=== PATIENT | female | born 2000 | race Caucasian/White ===

== ENCOUNTER 2023-11-18 20:40 | Outpatient (REF) | payer OTHER, SELFPAY ==
[2023-11-24 12:09] LABS: Age Gdln ACOG Testing Note (.); IGP, rfx Aptima HPV ASCU Note (.)
== END 2023-11-18 20:41 | disposition home or self-care (01) ==
LOC: LAB 20:40
PROVIDERS: Visit Provider Physician Assistant
DX: Z01.419 Encounter for gynecological examination (general) (routine) without abnormal findings (principal)
CPT/HCPCS: G0145

== ENCOUNTER 2023-11-22 10:44 | Outpatient (OUT) | payer OTHER, SELFPAY ==
--- NOTE | 2023-11-22 11:02 | US_ITS ---
The [address] [address] Patient Name: ROBIN TEJEDA MRN: [id number] date: 2000 Sex: F Assigned Patient Location: Current Patient Location: Accession/Order Number: [id number] Exam Date: 11/22/2023 11:03 Report Date: 11/24/2023 05:36 At the request of: RAJNI CARLSON Procedure: US pelvis w/ transvaginal EXAMINATION: US pelvis w/ transvaginal HISTORY: MENORRHAGIA, PELVIC PAIN ; chronic COMPARISON: No relevant comparison available. TECHNIQUE: Transabdominal and/or transvaginal sonographic examination was performed as indicated by examination type. FINDINGS: UTERUS: Normal size and appearance. Uterus size: 10.3 x 4.2 x 5.9 cm ENDOMETRIUM: Normal homogeneous appearance. Endometrial thickness: 6 mm RIGHT OVARY: Normal size and appearance. Duplex Doppler demonstrates normal waveform and flow; resistive index 0.6. Ovary size: 3.8 x 2.2 x 2.0 cm LEFT OVARY: Contains a 1.7 cm dominant follicle versus simple cyst. Duplex Doppler demonstrates normal waveform and flow; resistive index 0.6. Ovary size: 3.8 x 2.8 x 3.0 cm CUL-DE-SAC: Unremarkable. No significant free fluid. BLADDER: Unremarkable. OTHER: None. US/US pelvis w/ transvaginal IMPRESSION: 1. No abnormal or suspicious findings to account for patient's symptoms. Electronically authenticated by: PAULA MIGUEL Date: 11/24/2023 05:36
[2023-11-22 11:05] LABS: Basophils Absolute Auto 0.1 10^3/uL (0.0-0.1); Basophils Percent Auto 1.1 % (0.2-2.0); Eosinophils Absolute Auto 0.1 10^3/uL (0.0-0.7); Eosinophils Percent Auto 1.3 % (0.9-7.0); Hematocrit 37.9 % (36.0-48.0); Lymphocytes Absolute Auto 1.6 10^3/uL (1.2-3.8); Lymphocytes Percent Auto 34.1 % (20.5-60.0); Mean Corpuscular HGB Conc 31.7 g/dL (29.9-35.2); Mean Corpuscular Hemoglobin 28.4 pg (26.7-34.0); Mean Corpuscular Volume 89.6 fL (81.0-99.0); Mean Platelet Volume 10.8 fL (9.5-13.5); Monocytes Absolute Auto 0.4 10^3/uL (0.3-0.8); Monocytes Percent Auto 9.7 % (1.7-12.0); Neutrophils Absolute Auto 2.5 10^3/uL (1.4-6.5); Neutrophils Percent Auto 53.8 % (43.0-75.0); Platelet Count 218 10^3/uL (150-450); Red Blood Count 4.23 10^6/uL (4.20-5.40); Red Cell Distribution Width 12.2 % (11.0-15.0); White Blood Count 4.6 10^3/uL (4.0-11.0)
[2023-11-22 11:23] LABS: Estimated Average Glucose 94 mg/dL; Glycohemoglobin A1C 4.9 % (4.5-6.2)
[2023-11-22 11:44] LABS: INR 1.01; Partial Thromboplastin Time 33.4 sec (22.3-36.2); Prothrombin Time 10.7 sec (9.0-11.6)
[2023-11-22 11:46] LABS: Free T4 0.79 ng/dL (0.76-1.46)
[2023-11-22 12:14] LABS: HCG Quantitative <1 mIU/mL; Thyroid Stimulating Hormone 1.522 uIU/mL (0.358-3.740)
== END 2023-11-22 10:45 | disposition home or self-care (01) ==
LOC: US 10:44
PROVIDERS: Visit Provider Obstetrics & Gynecology
DX: N92.0 Excessive and frequent menstruation with regular cycle (principal)
CPT/HCPCS: 36415; 76830; 76856; 83036; 84439; 84443; 84702; 85025; 85610; 85730

== ENCOUNTER 2025-02-15 12:09 | Outpatient (OUT) | payer OTHER, SELFPAY ==
[2025-02-15 12:57] LABS: Hematocrit 38.1 % (36.0-48.0); Hemoglobin 12.4 g/dL (12.0-16.0); Immature Granulocytes Abs Auto 0.01 10^3/uL (0.00-0.03); Immature Granulocytes Pct Auto 0.2 % (0.0-0.5); Lymphocytes Absolute Auto 1.3 10^3/uL (1.2-3.8); Mean Corpuscular HGB Conc 32.5 g/dL (29.9-35.2); Mean Corpuscular Hemoglobin 28.5 pg (26.7-34.0); Mean Corpuscular Volume 87.6 fL (81.0-99.0); Platelet Count 252 10^3/uL (150-450); Red Blood Count 4.35 10^6/uL (4.20-5.40); White Blood Count 4.8 10^3/uL (4.0-11.0)
[2025-02-15 13:36] LABS: Thyroid Stimulating Hormone 0.818 uIU/mL (0.358-3.740)
[2025-02-16 04:07] LABS: FSH 3.2 mIU/mL (.)
== END 2025-02-15 12:10 | disposition home or self-care (01) ==
PROVIDERS: Visit Provider Physician Assistant
DX: E28.2 Polycystic ovarian syndrome (principal); Z01.419 Encounter for gynecological examination (general) (routine) without abnormal findings
CPT/HCPCS: 36415; 82627; 83001; 83002; 83036; 84439; 84443; 84702; 85025; 88175

== ENCOUNTER 2025-02-15 19:10 | Outpatient (REF) | payer OTHER, SELFPAY ==
[2025-02-21 16:08] LABS: Age Gdln ACOG Testing Note (.); IGP, rfx Aptima HPV ASCU Note (.)
== END 2025-02-15 19:11 | disposition home or self-care (01) ==
LOC: LAB 19:10
PROVIDERS: Visit Provider Physician Assistant
DX: Z01.419 Encounter for gynecological examination (general) (routine) without abnormal findings (principal)
CPT/HCPCS: 88175

== ENCOUNTER 2025-03-28 20:28 | Outpatient (REF) | payer OTHER, SELFPAY | END 2025-03-28 20:29 | disposition home or self-care (01) | LOC: LAB 20:28 | PROVIDERS: Visit Provider Obstetrics & Gynecology | DX: N64.3 Galactorrhea not associated with childbirth (principal) | CPT/HCPCS: 87070; 87075 ==

== ENCOUNTER 2025-04-13 08:41 | Outpatient (OUT) | payer OTHER, SELFPAY ==
--- OUTSIDE RECORDS SUMMARY | 2025-04-13 08:44 | XMS_ITS | Encounter Summary ---
Author Organization [facility] Address [address] [place] [address] Care Team Providers Care National Van Owner Operator Name Role Phone Benjamin Watts MD Primary Care Provider [phone] Encounter Details Date Type Department Care Team (Late st Contact Info) Description 11/24/2023 Clinisync Result Encounter [facility] External Department Unsolicited Rajni Manjarrez DO [address] [place], [place] [id number] Social History Tobacco Use Types Packs/Day Years Used Date Smoking Tobacco: Never Alcohol Use Standard Drinks/Week Comments Never 0 (1 standard drink = 0.6 oz pur e alcohol) Comments Unknown Sex and Gender Information Value Date Recorded Sex Assigned at Female 01/29/2023 8:37 AM EDT Legal Sex Female 11:47 PM EDT Gender Identity Female 01/29/2023 8:37 AM EDT Sexual Orientation Not on file documented as of this encounter Plan of Treatment Upcoming Encounters Date Type Department Care Team (Late st Contact Info) Description 04/28/2025 9:50 AM EDT Consult [facility] [address] [place] [id number] Rajni Manjarrez DO [address] [place], [place] [id number] documented as of this encounter Procedures Procedure Name Priority Date/Time Associated Diagnosis Comments US PELVIS W/ TRANSVAGINAL 11/24/2023 5:36 AM EDT documented in this encounter Results * US PELVIS W/ TRANSVAGINAL (11/24/2023 5:36 AM EDT) Anatomical Region Laterality Modality Other 11/24/2023 5:36 AM EDT Narrative 11/24/2023 5:39 [place] [address] Ultrasound Report Signed Patient: EDEL TEJEDA MR#: [id number] : 2000 Acct:[id number] Age/Sex: 23 / F ADM Date: 11/22/23 Loc: US Attending Dr: Rajni Manjarrez D.O. Ordering Physician: Rajni Manjarrez D.O. Date of Service: 11/22/23 Procedure(s): US pelvis w/ transvaginal Accession Number(s): [id number] cc: Rajni Manjarrez D.O.; Physician,Non-Staff [address] [place] [id number] Patient Name: EDEL TEJEDA MRN: [id number] date: 2000 Sex: F Assigned Patient Location: US Current Patient Location: Accession/Order Number: [id number] Exam Date: 11/22/2023 11:03 Report Date: 11/24/2023 05:36 At the request of: RAJNI MANJARREZ Procedure: US pelvis w/ transvaginal EXAMINATION: US pelvis w/ transvaginal HISTORY: MENORRHAGIA, PELVIC PAIN ; chronic COMPARISON: No relevant comparison available. TECHNIQUE: Transabdominal and/or transvaginal sonographic examination was performed as indicated by examination type. FINDINGS: UTERUS: Normal size and appearance. Uterus size: 10.3 x 4.2 x 5.9 cm ENDOMETRIUM: Normal homogeneous appearance. Endometrial thickness: 6 mm RIGHT OVARY: Normal size and appearance. Duplex Doppler demonstrates normal waveform and flow; resistive index 0.6. Ovary size: 3.8 x 2.2 x 2.0 cm LEFT OVARY: Contains a 1.7 cm dominant follicle versus simple cyst. Duplex Doppler demonstrates normal waveform and flow; resistive index 0.6. Ovary size: 3.8 x 2.8 x 3.0 cm CUL-DE-SAC: Unremarkable. No significant free fluid. BLADDER: Unremarkable. OTHER: None. US/US pelvis w/ transvaginal IMPRESSION: 1. No abnormal or suspicious findings to account for patient's symptoms. Electronically authenticated by: EDWAR HSIEH Date: 11/24/2023 05:36 Dictated By: Edwar Hsieh M.D. Signed By: 11/24/23 0539 DD/ TD/TT: Maintenance Worker House Trailer: Procedure Note Radiology, Radiologist, MD - 11/24/2023 [place] [address] Ultrasound Report Signed Patient: EDEL TEJEDA MMR#: [id number] : 2000Acct:[id number] Age/Sex: 23 / FADM Date: 11/22/23 Loc: US Attending Dr: Rajni Manjarrez D.O. Ordering Physician: Rajni Manjarrez D.O. Date of Service: 11/22/23 Procedure(s): US pelvis w/ transvaginal Accession Number(s): [id number] cc: Rajni Manjarrez D.O.; Physician,Non-Staff [facility] [address] [place] [id number] Patient Name: EDEL TEJEDA MRN: [id number] date: 2000 Sex: F Assigned Patient Location: US Current Patient Location: Accession/Order Number: [id number] Exam Date: 11/22/2023 11:03 Report Date: 11/24/2023 05:36 At the request of: RAJNI MANJARREZ Procedure: US pelvis w/ transvaginal EXAMINATION: US pelvis w/ transvaginal HISTORY: MENORRHAGIA, PELVIC PAIN ; chronic COMPARISON: No relevant comparison available. TECHNIQUE: Transabdominal and/or transvaginal sonographic examination was performed as indicated by examination type. FINDINGS: UTERUS: Normal size and appearance. Uterus size: 10.3 x 4.2 x 5.9 cm ENDOMETRIUM: Normal homogeneous appearance. Endometrial thickness: 6 mm RIGHT OVARY: Normal size and appearance. Duplex Doppler demonstratesnormal waveform and flow; resistive index 0.6. Ovary size: 3.8 x 2.2 x 2.0 cm LEFT OVARY: Contains a 1.7 cm dominant follicle versus simple cyst. Duplex Doppler demonstrates normal waveform and flow; resistive index 0.6. Ovary size: 3.8 x 2.8 x 3.0 cm CUL-DE-SAC: Unremarkable. No significant free fluid. BLADDER: Unremarkable. OTHER: None. US/US pelvis w/ transvaginal IMPRESSION: 1. No abnormal or suspicious findings to account for patient's symptoms. Electronically authenticated by: EDWAR HSIEH Date: 11/24/2023 05:36 Dictated By: Edwar Hsieh M.D. Signed By:11/24/23 0539 DD/ 0536 TD/TT: Maintenance Worker House Trailer: us Rajni Josseline DO [facility] Final Result documented in this encounter Visit Diagnoses Not on filedocumented in this encounter Care Teams National Van Owner Operator Relationship Specialty Start Date End Date Benjamin Watts MD [address] [place] [id number] PCP - General Family Medicine 02/05/23 documented as of this encounter
--- OUTSIDE RECORDS SUMMARY | 2025-04-13 08:44 | XMS_ITS | Encounter Summary ---
Author Organization [facility] tem Address [id number] [address] [place] [address] Care Team Providers Care Commercial Ocean Clammer Name Role Phone Marko Freeman MD Primary Care Provider [phone] Encounter Details Date Type Department Care Team (Late st Contact Info) Description 02/23/2021 Orders Only Maternal- Medicine at [facility] [address] [place] [id number] External, Scanning Provider Social History Tobacco Use Types Packs/Day Years Used Date Smoking Tobacco: Never Smokeless Tobacco: Never Alcohol Use Standard Drinks/Week Comments Not Currently 0 (1 standard drink = 0.6 oz pur e alcohol) Childcare Answer Date Recorded Childcare Unknown 01/25/2019 Employment Answer Date Recorded Employment Unknown 01/25/2019 Purpose - Life Answer Date Recorded Purpose and direction in life Unknown Comments Yes Sex and Gender Information Value Date Recorded Sex Assigned at Not on file Legal Sex Female 2:10 PM EDT Gender Identity Not on file Sexual Orientation Not on file documented as of this encounter Plan of Treatment Not on file documented as of this encounter Procedures Procedure Name Priority Date/Time Associated Diagnosis Comments US PREG LMTD 1 OR MORE FETUS Routine 11/28/2020 documented in this encounter Results * Ultrasound limited 1 or more fetus (11/28/2020) Anatomical Region Laterality Modality 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
--- OUTSIDE RECORDS SUMMARY | 2025-04-13 08:44 | XMS_ITS | Clinical Summary ---
Author Organization [facility] Address [address] [place] [address] Care Team Providers Care Animal Technician Name Role Phone Benjamin Watts MD Primary Care Provider [phone] Allergies Active Allergy Reactions Criticality Noted Date Comments Amoxicillin-Pot Clavulanate Nausea And Vomiting Low 01/08/2025 Stomach pain and migraines Azithromycin Hives,Rash,Unknown Low 05/29/2017 Stomach pain Other Reaction(s): Other (See Comments), Vomiting Medications methylPREDNISol one (Medrol Dospak) 4 MG tablets PLEASE SEE ATTACHED FOR DETAILED DIRECTIONS 5 Active fluocinonide (Lidex) 0.05 % cream PLEASE SEE ATTACHED FOR DETAILED DIRECTIONS 5 Active cyclobenzaprine (Flexeril) 10 MG tablet TAKE 1 TABLET BY MOUTH THREE TIMES A DAY NEEDED FOR MUSCLE SPASM 5 Active citalopram (CeleXA) 20 MG tabletIndicatio ns:Anxiety and depression Take 1 tablet (20 mg) by mouth Daily 30 tablet 11 5 02/16/20 26 Active cephalexin (Keflex) 500 MG capsuleIndicati ons:Nipple discharge Take 1 capsule (500 mg) by mouth in the morning and 1 capsule (500 mg) in the evening and 1 capsule (500 mg) before bedtime. Do all this for 7 days. 21 capsule 5 04/19/20 25 Active ondansetron (Zofran) 4 MG tabletIndicatio ns:Nausea Take 1 tablet (4 mg) by mouth 2 (two) times a day as needed for nausea 20 tablet 07/03/17/20 25 Encounters Date Type Department Care Team Description 04/12/2025 Abstract [facility] [address] [place] [phone] Vince Manjarrez, 04/12/2025 Telephone [facility] [address] [place] [phone] Vince Manjarrez, 03/28/2025 3:50 PM EDT Office Visit [facility] [address] [place] [address] Vince Manjarrez, DO Inappropriate milk production (Primary Dx); PCOS (polycystic ovarian syndrome); Anxiety and depression ; Nausea; Hemophilia (HCC) 03/28/2025 Bamboo flowsheet [facility] [address] [place] [address] Vince Manjarrez, 03/01/2025 11:00 AM EDT Ancillary Procedure [facility] [address] [place] [address] PCOS (polycystic ovarian syndrome); Pain of ovary; Pelvic pain in female; Dyspareunia in female; Menorrhagia with regular cycle 02/23/2025 Orders Only [facility] [address] [place] [address] Ambar Alonso LPN 02/15/2025 11:00 AM EDT Office Visit [facility] [address] [place] [phone] Catalina Rainey PA PCOS (polycystic ovarian syndrome) (Primary Dx); Well woman exam with routine gynecological exam; Pain of ovary; Pelvic pain in female; Dyspareunia in female; Menorrhagia with regular cycle; Anxiety and depression ; Nausea 02/15/2025 Clinisync Result Encounter [facility] External Department Unsolicited Catalina Rainey PA 02/15/2025 Bamboo flowsheet [facility] [address] [place] [phone] Catalina Rainey PA from Last 3 Months Family History Medical History Relation Name Comments Hemophilia Other B Hemophilia Son 1 Hemophilia Son 2 Relation Name Status Comments Brother Alive Father Alive Mother Alive Other Grandmother Sister 1 Alive Sister 2 Alive Son 1 Alive 2 sons Son 2 Alive Social History Tobacco Use Types Packs/Day Years Used Date Smoking Tobacco: Never Tobacco Cessation:Counseling Given: Not Answered Alcohol Use Standard Drinks/Week Comments Never 0 (1 standard drink = 0.6 oz pur e alcohol) Comments No Sex and Gender Information Value Date Recorded Sex Assigned at Female 01/29/2023 8:37 AM EDT Legal Sex Female 11:47 PM EDT Gender Identity Female 01/29/2023 8:37 AM EDT Sexual Orientation Not on file Last Filed Vital Signs Vital Sign Reading Time Taken Comments Blood Pressure 114/72 03/28/2025 3:53 PM EDT Pulse - - Temperature - - Respiratory Rate - - Oxygen Saturation - - Inhaled Oxygen Concentration - - Weight 69.9 kg (154 lb) 03/28/2025 3:53 PM EDT Height 165.1 cm (5' 5 ) 03/28/2025 3:53 PM EDT Body Mass Index 25.63 03/28/2025 3:53 PM EDT Plan of Treatment Upcoming Encounters Date Type Department Care Team (Late st Contact Info) Description 04/28/2025 9:50 AM EDT Consult [facility] [address] [place] [phone] Vince Manjarrez DO [address] [place] [address] Procedures Procedure Name Priority Date/Time Associated Diagnosis Comments DHEA, UNCONJUGATED Routine 03/29/2025 8: 46 AM EDT PCOS (polycystic ovarian syndrome) DHEA SULFATE Routine 03/29/2025 8:46 AM EDT PCOS (polycystic ovarian syndrome) HEMOGLOBIN A1C Routine 03/29/2025 8:46 AM EDT PCOS (polycystic ovarian syndrome) LH Routine 03/29/2025 8:46 AM EDT PCOS (polycystic ovarian syndrome) FSH Routine 03/29/2025 8:46 AM EDT PCOS (polycystic ovarian syndrome) CBC (INCLUDES DIFF/PLT) Routine 03/29/2025 8:46 AM EDT PCOS (polycystic ovarian syndrome) T4, FREE Routine 03/29/2025 8:46 AM EDT PCOS (polycystic ovarian syndrome) TSH Routine 03/29/2025 8:46 AM EDT PCOS (polycystic ovarian syndrome) HCG, TOTAL, QN Routine 03/29/2025 8:46 AM EDT PCOS (polycystic ovarian syndrome) US PELVIS TRANSVAGINAL Routine 03/01/2025 12:01 PM EDT PCOS (polycystic ovarian syndrome) Pain of ovary Pelvic pain in female Dyspareunia in female Menorrhagia with regular cycle ALL FOLLICLE STIMULATING HORMONE Routine 02/15/2025 12:34 PM EDT ALL LUTEINIZING HORMONE Routine 02/15/2025 12:34 PM EDT ALL DHEA SULFATE Routine 02/15/2025 12:3 4 PM EDT MLR HEMOGLOBIN A1C Routine 02/15/2025 12 :34 PM EDT ALL THYROXINE (T4) FREE Routine 02/15/2025 12:34 PM EDT TBH PREG QUANT HCG Routine 02/15/2025 12 :34 PM EDT ALL THYROID STIM HORMONE Routine 02/15/2025 12:34 PM EDT ALL CBC WITH AUTO DIFF Routine 02/15/2025 12:34 PM EDT IGP,APTIMA HPV,AGE GDLN Routine 02/15/2025 11:12 AM EDT PAP SMEAR Routine 02/15/2025 12:00 AM EDT from Last 3 Months Results * DHEA-sulfate (03/29/2025 8:46 AM EDT) Blood Venous blood specimen / Unknown Catalina Rainey PA LAB BLOOD ORDERABLES Final Resul t Performing Organization Address [facility] de Phone Number [facility] * DHEA (03/29/2025 8:46 AM EDT) Blood Venous blood specimen / Unknown Catalina Rainey PA LAB BLOOD ORDERABLES Final Resul t Performing Organization Address [facility] Phone Number [facility] * CBC and differential (03/29/2025 8:46 AM EDT) Blood Venous blood specimen / Unknown Catalina Rainey PA LAB BLOOD ORDERABLES Final Resul t Performing Organization Address [facility] de Phone Number [facility] * hCG, quantitative, (03/29/2025 8:46 AM EDT) Blood Venous blood specimen / Unknown Catalina Rainey PA LAB BLOOD ORDERABLES Final Resul t Performing Organization Address [facility] Phone Number [facility] * TSH (03/29/2025 8:46 AM EDT) Blood Venous blood specimen / Unknown Catalina Rainey PA LAB BLOOD ORDERABLES Final Resul t Performing Organization Address [facility] de Phone Number [facility] * T4, free (03/29/2025 8:46 AM EDT) Blood Venous blood specimen / Unknown Catalina Rainey PA LAB BLOOD ORDERABLES Final Resul t Performing Organization Address [facility] de Phone Number [facility] * Hemoglobin A1c (03/29/2025 8:46 AM EDT) Blood Venous blood specimen / Unknown us Catalina NIETO LAB BLOOD ORDERABLES Final Resul t Performing Organization Address [facility] Co de Phone Number [facility] * Luteinizing hormone (03/29/2025 8:46 AM EDT) Blood Venous blood specimen / Unknown us Catalina Rainey PA LAB BLOOD ORDERABLES Final Resul t Performing Organization Address [facility] de Phone Number [facility] * Follicle stimulating hormone (03/29/2025 8:46 AM EDT) Blood Venous blood specimen / Unknown Catalina NIETO LAB BLOOD ORDERABLES Final Resul t Performing Organization Address [facility] de Phone Number [facility] * US pelvis transvaginal (03/01/2025 12:01 PM EDT) Anatomical Region Laterality Modality Pelvis Ultrasound 03/02/2025 6:50 PM EDT Impressions 03/03/2025 8:21 AM EDT 1. Ovarian follicles, right ovarian cyst. 2. Normal uterus. TRANSCRIBED BY: ELECTRONICALLY SIGNED BY: Hudson Dean MD Narrative 03/03/2025 8:21 AM EDT FINDINGS: Uterus 10.1 x 4.4 x 6.1 cm Endometrium 9mm Right Ovary 4.0 x 2.1 x 2.9cm Left Ovary 2.9 x 2.2. x 3.5 cm The uterus is normal in size and orientation. No worrisome mass lesions are seen. Endometrium appears unremarkable. No fluid is seen within the cul-de-sac. Bilateral ovarian follicles majority 3-5 mm, largest is located within the right ovary 2.2 x 1.6 x 2.1 cm. Procedure Note Hudson Dean MD - 03/03/2025 FINDINGS: Uterus 10.1 x 4.4 x 6.1 cm Endometrium 9mm Right Ovary 4.0 x 2.1 x 2.9cm Left Ovary 2.9 x 2.2. x 3.5 cm The uterus is normal in size and orientation. No worrisome mass lesionsare seen. Endometrium appears unremarkable. No fluid is seen within [id number]. Bilateral ovarian follicles majority 3-5 mm, largest islocated within the right ovary 2.2 x 1.6 x 2.1 cm. IMPRESSION: 1. Ovarian follicles, right ovarian cyst. 2. Normal uterus. TRANSCRIBED BY: ELECTRONICALLY SIGNED BY: Hudson Dean MD Catalina NIETO IMG US PROCEDURES Final Result * TBH PREG QUANT HCG (02/15/2025 12:34 PM EDT) HCG QUANTITATIVE <1 mIU/mL TB Comment: 5-50 0.2-1 WEEK 50-500 1-2 WEEKS 100-5,000 2-3 WEEKS 500-10,000 3-4 WEEKS 1,000-50,000 4-5 WEEKS 10,000-100,000 5-6 WEEKS 15,000-200,000 6-8 WEEKS 10,000-100,000 2-3 MONTHS 02/15/2025 12:3 4 PM EDT 02/15/2025 12:45 PM EDT Narrative CLINISYNC - 02/15/2025 1:42 PM EDT Catalina KELLOGG Final Result Performing Organization Address [facility] Co de Phone Number CLINISYAZ TB * MLR HEMOGLOBIN A1C (02/15/2025 12:34 PM EDT) Pathologist [facility] GLYCOHEMOGLOBIN A1C 5.2 4.5 - 6.2 % TB Comment: ADA RECOMMENDED LIMIT 4.0 - 6.0 ADA THERAPEUTIC TARGET < 7.0 ACTION SUGGESTED > 7.0 ESTIMATED AVERAGE GLUCOSE 103 mg/dL TB 02/15/2025 12:3 4 PM EDT 02/15/2025 12:45 PM EDT Narrative CLINISYNC - 02/15/2025 3:48 PM EDT Catalina KELLOGG Final Result [facility] * ALL THYROXINE (T4) FREE (02/15/2025 12:34 PM EDT) FREE T4 0.98 0.76 - 1.46 ng/dL TBH 02/15/2025 12:3 4 PM EDT 02/15/2025 12:45 PM EDT Narrative CLINISYNC - 02/15/2025 3:11 PM EDT Catalina KELLOGG Final Result CLINIS[facility]NC TB * ALL THYROID STIM HORMONE (02/15/2025 12:34 PM EDT) THYROID STIMULATING HORMONE 0.818 0.358 - 3.740 uIU/mL TBH 02/15/2025 12:3 4 PM EDT 02/15/2025 12:45 PM EDT Narrative CLINISYNC - 02/15/2025 1:42 PM EDT Catalina KELLOGG Final Result Performing Organization Address [facility]/ZIP Co de Phone Number CLINISYNC TB * ALL LUTEINIZING HORMONE (02/15/2025 12:34 PM EDT) LUTEINIZING HORMONE(LH) 8.7 . mIU/mL TBH Comment: Adult Female Range Follicular phase 2.4 - 12.6 Ovulation phase 14.0 - 95.6 Luteal phase 1.0 - 11.4 Postmenopausal 7.7 - 58.5 02/15/2025 12:3 4 PM EDT 02/15/2025 12:45 PM EDT Narrative CLINISYNC - 02/16/2025 4:07 AM EDT Catalina KELLOGG Final Result Performing Organization Address [facility]/ZIP Co de Phone Number CLINISYNC TB * ALL FOLLICLE STIMULATING HORMONE (02/15/2025 12:34 PM EDT) FSH 3.2 . mIU/mL TBH Comment: Adult Female Range Follicular phase 3.5 - 12.5 Ovulation phase 4.7 - 21.5 Luteal phase 1.7 - 7.7 Postmenopausal 25.8 - 134.8 Performed at: [address] [id number] Dining Room Manager: Nacho Graves PhD, Phone: [phone] 02/15/2025 12:3 4 PM EDT 02/15/2025 12:45 PM EDT Narrative CLINISYNC - 02/16/2025 4:07 AM EDT us Catalina KELLOGG Final Result CLIN[facility]NC TB * ALL DHEA SULFATE (02/15/2025 12:34 PM EDT) DHEA-SULFATE 201.0 84.8 - 378.0 ug/dL TB 02/15/2025 12:3 4 PM EDT 02/15/2025 12:45 PM EDT Narrative CLINISYNC - 02/16/2025 4:07 AM EDT us Catalina KELLOGG Final Result Performing Organization Address City/[facility] Co de Phone Number CLINISYNC TB * ALL CBC WITH AUTO DIFF (02/15/2025 12:34 PM EDT) TBH WBC 4.8 4.0 - 11.0 10 3/uL TBH TBH RBC 4.35 4.20 - 5.40 10 6/uL TBH TBH HGB 12.4 12.0 - 16.0 g/dL TBH TBH HCT 38.1 36.0 - 48.0 % TBH TBH MCV 87.6 81.0 - 99.0 fL TBH TBH MCH 28.5 26.7 - 34.0 pg TBH TBH MCHC 32.5 29.9 - 35.2 g/dL TBH TBH RDW 13.5 11.0 - 15.0 % TBH TBH PLT 252 150 - 450 10 3/uL TBH TBH MPV 10.6 9.5 - 13.5 fL TBH NEUTROPHILS PERCENT AUTO 62.4 43.0 - 75.0 % TBH LYMPHOCYTES PERCENT AUTO 26.5 20.5 - 60.0 % TBH MONOCYTES PERCENT AUTO 8.6 1.7 - 12.0 % TBH TBH EO % 1.3 0.9 - 7.0 % TBH BASOPHILS PERCENT AUTO 1.0 0.2 - 2.0 % TBH IMMATURE GRANULOCYTES PCT AUTO 0.2 0.0 - 0.5 % TBH NEUTROPHILS ABSOLUTE AUTO 3.0 1.4 - 6.5 10 3/uL TBH LYMPHOCYTES ABSOLUTE AUTO 1.3 1.2 - 3.8 10 3/uL TBH MONOCYTES ABSOLUTE AUTO 0.4 0.3 - 0.8 10 3/uL TBH TBH EO # 0.1 0.0 - 0.7 10 3/uL TBH BASOPHILS ABSOLUTE AUTO 0.1 0.0 - 0.1 10 3/uL TBH IMMATURE GRANULOCYTES ABS AUTO 0.01 0.00 - 0.03 10 3/uL TBH 02/15/2025 12:3 4 PM EDT 02/15/2025 12:45 PM EDT Narrative CLINISYNC - 02/15/2025 12:58 PM EDT Catalina NIETO CLINISYNC Final Result [facility] * IGP,APTIMA HPV,AGE GDLN (02/15/2025 11:12 AM EDT) Pathologist [facility] AGE GDLN ACOG TESTING Note . [facility] Comment: TESTS RESULT FLAG UNITS REF RANGE LAB Clinician Provided Cytology Information Source.............Cervix;Endocervix No. of containers..01 ThinPrep Vial Age Algo ACOG Marianne... -15 09 FLAG LEGEND: L-Low Normal,H-High Normal,LL-Alert Low,HH-Alert High <-Panic Low,>-Panic High,A-Abnormal,AA-Critical Abnormal Performed at: 01 =G [address] [id number] Lori Suarez MD, IGP, RFX APTIMA HPV ASCU Note . [facility] Comment: TESTS RESULT FLAG UNITS REF RANGE LAB DIAGNOSIS: 02 NEGATIVE FOR INTRAEPITHELIAL LESION OR MALIGNANCY. FUNGAL ORGANISMS MORPHOLOGICALLY CONSISTENT WITH SIDNEY SPECIES ARE PRESENT. Specimen adequacy: 02 Satisfactory for evaluation. No endocervical component is identified. Performed by: Anitra Lyons, Piercing Machine Operator ([facility]) . 02 Note: Note 03 The Pap smear is a screening test designed to aid in the detection of premalignant and malignant conditions of the uterine cervix. It is not a diagnostic procedure and should not be used as the sole means of detecting cervical cancer. Both false-positive and false-negative reports do occur. Test Methodology: Note 03 This liquid based ThinPrep(R) pap test was screened with the use of an image guided system. . 02 The HPV DNA reflex criteria were not met with this specimen result therefore, no HPV testing was performed. FLAG LEGEND: L-Low Normal,H-High Normal,LL-Alert Low,HH-Alert High <-Panic Low,>-Panic High,A-Abnormal,AA-Critical Abnormal Performed at: 02 [facility] [facility] [address] [address] [place] [address] Akil Patel MD, 03 WB [facility] [address] [phone] Lori Suarez MD, Performed at: =G - [facility] [address] [id number] Dining Room Manager: Lori Suarez MD, Phone: [phone] Performed at: [facility] [address] [place], [place] [id number] Dining Room Manager: Akil Patel MD, Phone: [phone] 02/15/2025 11:1 2 AM EDT 02/15/2025 8:40 PM EDT Narrative CLINISYNC - 02/21/2025 4:08 PM EDT BRUSH-SPATULA CERVIX ENDOCERVIX Catalina NIETO LAB BLOOD ORDERABLES Final Resul t Performing Organization Address [facility]/ZIP Co de Phone Number CLINISYNC TB * Pap Smear (02/15/2025 12:00 AM EDT) Swab Cervical swab / Unknown Catalina NIETO LAB CYTOLOGY ORDERABLES Final Re sult Performing Organization Address City/[facility] Co de Phone Number EXTERNAL LAB from Last 3 Months Insurance [employer] Care Teams Animal Technician Relationship Specialty Start Date End Date Benjamin Watts MD [address] [place] [address] PCP - General Family Medicine 02/05/23
--- OUTSIDE RECORDS SUMMARY | 2025-04-13 08:44 | XMS_ITS | Clinical Summary ---
Author Organization [facility] Address [address], [address] [place] [address] Care Team Providers Care Patient Centered Care Specialist Name Role Phone Benjamin Watts MD Primary Care Provider [phone] Allergies Active Allergy Reactions Criticality Noted Date Comments Amoxicillin-Pot Clavulanate Nausea And Vomiting Low 01/08/2025 Stomach pain and migraines Azithromycin Other (See Comments) 05/29/2017 Stomach pain Medications ondansetron (ZOFRAN-ODT) 4 MG disintegrating tablet Take 1 tablet by mouth 3 times daily as needed for Nausea or Vomiting 21 tablet 04/13/20 23 Active Additional Information Patient not taking.Reported on 01/08/2025 dicyclomine (BENTYL) 20 MG tablet Take 1 tablet by mouth 4 times daily as needed (abdominal pain) 20 tablet 04/13/20 23 Active Additional Information Patient not taking.Reported on 01/08/2025 acetaminophen (TYLENOL) 500 MG tablet Take 2 tablets by mouth every 6 hours as needed for Pain Active Active Problems Patient Care Coordination No te Formatting of this note migh t be different from the original. Gender = Circ = Ped = Epidural/natural = RH factor = negative Rhogam? = needs at 28 weeks Flu shot = TDAP (27-36 wks)= 03/22/2020 GBS = neg / Card - Problem Noted Date Diagnosed Date Uterine contractions during 05/06/2019 Encounter for care in third trimester of first 05/06/2019 Dysautonomia 02/26/2016 Chronic generalized abdominal pain Maternal care for decelerations during pre gnancy 38 weeks gestation of Immunizations Immunization Administration Dates Next Due Meningococcal ACWY Vaccine 2014 TDaP, ADACEL (age 10y-64y), BOOSTRIX (age 10y+), IM, 0.5mL 03/22/2019 Family History Medical History Relation Name Comments No Known Problems Brother Kidney Disease Father kidney failur e No Known Problems Maternal Grandfather Other Maternal Grandmother Colon p olyps. No Known Problems Mother Other Other No family h/o o varian or breast cancer. No family h/o DVT. Other Paternal Grandfather Hungtin gton's No Known Problems Paternal Grandmother No Known Problems Sister 1 No Known Problems Sister 2 Other Son Paul Hemophilia B Relation Name Status Comments Brother Alive Father Alive Maternal Grandfather Alive Maternal Grandmother Alive Mother Alive Other Other Paternal Grandfather Paternal Grandmother Alive Sister 1 Alive Sister 2 Alive Son Paul Alive Social History Tobacco Use Types Packs/Day Years Used Date Smoking Tobacco: Former Cigarettes Smokeless Tobacco: Never Tobacco Cessation:Counseling Given: Not Answered Comments:stopped at begining of Alcohol Use Standard Drinks/Week Comments No 0 (1 standard drink = 0.6 oz pur e alcohol) AUDIT-C Answer Date Recorded Q1: How often do you have a drink containing alcohol? Never 01/08/2025 Q2: How many drinks containi ng alcohol do you have on a typical day when you are drinking? Patient does not drink Q3: How often do you have si x or more drinks on one occasion? Never 01/08/2025 PHQ-2 Answer Date Recorded PHQ-9 Total Score 0 05/03/2020 Interpersonal Safety Domain Source: IP Abuse Scr eening Answer Date Recorded Physical abuse Denies 01/08/2025 Verbal abuse Denies 01/08/2025 Emotional abuse Denies 01/08/2025 Financial abuse Denies 01/08/2025 Sexual abuse Denies 01/08/2025 Comments No Sex and Gender Information Value Date Recorded Sex Assigned at Not on file Legal Sex Female 3:34 PM EST Gender Identity Not on file Sexual Orientation Not on file Last Filed Vital Signs Vital Sign Reading Time Taken Comments Blood Pressure 116/78 01/08/2025 9:11 AM EDT Pulse 84 01/08/2025 9:11 AM EDT Temperature 36.1 C (97 F) 01/08/2025 9:11 AM EDT Respiratory Rate 20 01/08/2025 9:11 AM EDT Oxygen Saturation 100% 01/08/2025 9:11 AM EDT Inhaled Oxygen Concentration - - Weight 72.6 kg (160 lb) 01/08/2025 9:12 AM EDT Height 165.1 cm (5' 5 ) 01/08/2025 9:12 AM EDT Body Mass Index 26.63 01/08/2025 9:12 AM EDT Plan of Treatment Health Maintenance Due Date Last Done Comments Varicella vaccine (2 of 2 - 2-dose childhood series) 2002 05/17/1999 Depression Screen 2010 HPV vaccine (1 - 3-dose series) 2013 Pap smear 05/03/2023 05/03/2020, 06/30/2019 COVID-19 Vaccine ( season) 2024 Flu vaccine (#1) 03/18/2025 DTaP/Tdap/Td vaccine (8 - Td or Tdap) 03/22/2029 03/22/2019, 02/28/2011, 02/02/2004, Additional history exists Hepatitis B vaccine Completed 1998, 1998, 1998 Hib vaccine Completed 06/14/1999, 10/17, 1998, Additional history exists Polio vaccine Completed 02/02/2004, 04/20, 1998, Additional history exists Hepatitis A vaccine Completed 10/25/2006, 6 Meningococcal (ACWY) vaccine Completed 02/27/2016, 2014 Hepatitis C screen Completed 08/27/2018 HIV screen Completed 09/08/2018, 08/27/2018 Chlamydia/GC screen Discontinued 05/03/2020, 09/07/2018, 01/27/2018, Additional history exists Meningococcal B vaccine Aged Out No l onger eligible based on patient's age to complete this topic Pneumococcal 0-49 years Vaccine Aged Out No longer eligible based on patient's age to complete this topic Procedures Procedure Name Priority Date/Time Associated Diagnosis Comments LANDSCAPE TECHNICIAN CYTOLOGY Routine 05/03/2020 1:13 PM EDT C.TRACHOMATIS N.GONORRHOEAE DNA, THIN PREP Routine 05/03/2020 11:52 AM EDT Menorrhagia with irregular cycle HIV SCREEN Routine 09/08/2018 HEPATITIS C ANTIBODY Routine 08/27/2018 STD exposure from Last 3 Months or Most Recently Relevant to Health Maintenance Results * LANDSCAPE TECHNICIAN Cytology (05/03/2020 1:13 PM EDT) Cytology Report INTERPRETATION Cervical material, (ThinPrep vial, Imaging-assisted review): Specimen Adequacy: Satisfactory for evaluation. - Endocervical/trans formation zone component present. - Scant cellularity; predominantly blood. - Specimen was reprocessed in an attempt to supplement squamous cell yield for adequacy. Descriptive Diagnosis: Negative for intraepithelial lesion or malignancy. Wood Flour Miller: WINSTON KIRKPATRICK(ASCP) Electronically Signed Out ey/05/16/2020 Source: 1: Cervical material, (ThinPrep vial, Imaging-assisted review) Clinical History Depo Provera Z12.4 Encounter for screening for malignant neoplasm of cervix LMP: 05/01/2020 GYNECOLOGIC CYTOLOGY REPORT Patient Name: EDEL TEJEDA [facility] [place] Rec: [id number] Path Number: [id number] [facility] [employer] [facility] ANATOMIC PATHOLOGY [address] [place] [phone] Sweet Cred 05/03/2020 1:13 PM EDT 05/04/2020 1:13 PM EDT Muriel Horton SENIOR BUSINESS INTELLIGENCE ANALYST - CNM PATHOLOGY/CYTOLO GY ORDERABLES Final Result [facility] [address] [place] [address], [facility] [phone] [place] [address], [facility] [phone] * C.trachomatis N.gonorrhoeae DNA, Thin Prep (05/03/2020 11:52 AM EDT) Specimen Description .CERVIX 05/03/2020 11:52 AM EDT [facility] Chlamydia By Thin Prep NEGATIVE NEGATIVE 05/03/2020 11:52 AM EDT [facility] Comment: CHLAMYDIA TRACHOMATIS DNA not detected by nucleic acid amplification. This test is intended for medical purposes only and is not valid for the evaluation of suspected sexual abuse or for other forensic purposes. In certain contexts, culture may be required to meet applicable laws and regulations for diagnosis of C. trachomatis and N. gonorrhoeae infections. Per 2014 CDC recommendations, this test does not include confirmation of positive results by an alternative nucleic acid target. N. gonorrhoeae DNA, Thin Prep NEGATIVE NEGATIVE 05/03/2020 11:52 AM EDT [facility] Comment: NEISSERIA GONORRHOEAE DNA not detected by nucleic acid amplification. This test is intended for medical purposes only and is not valid for the evaluation of suspected sexual abuse or for other forensic purposes. In certain contexts, culture may be required to meet applicable laws and regulations for diagnosis of C. trachomatis and N. gonorrhoeae infections. Per 2014 CDC recommendations, this test does not include confirmation of positive results by an alternative nucleic acid target. CERVICAL SWAB / Unknown 05/03/2020 11:52 AM EDT 05/03/2020 11:52 AM EDT Muriel Horton SENIOR BUSINESS INTELLIGENCE ANALYST - CNM MICROBIOLOGY - G ENERAL ORDERABLES Final Result [facility] [address] [place] [address], [facility] [phone] [facility] [address] [place] [address], [facility] [phone] * HIV Screen (09/08/2018) HIV Ag/Ab non reactive BLOOD SPECIMEN / Unknown Historical Provider IMMUNOLOGY ORDERABLES Fin al Result * Hepatitis C Antibody (08/27/2018) Antibody Screen BLOOD SPECIMEN / Unknown 08/27/2018 Muriel Ivis Clifford SENIOR BUSINESS INTELLIGENCE ANALYST - CNM IMMUNOLOGY ORDER HEIDY Final Result from Last 3 Months or Most Recently Relevant to Health Maintenance Insurance [employer] * Guarantor: GILDA TEJEDA Account Type Relation to Patient Date of Phone Billing Address Personal/Family Father 1971 [address] [place] [address] Advance Directives * Full Code (Latest Code Status on File) Date Activated Date Inactivated Comments 05/06/2019 11:21 PM 05/08/2019 4:02 PM * Full Code Date Activated Date Inactivated Comments 05/06/2019 8:15 AM 05/06/2019 11:21 PM * Full Code Date Activated Date Inactivated Comments 05/05/2019 10:26 PM 05/06/2019 8:15 AM Care Teams Patient Centered Care Specialist Relationship Specialty Start Date End Date Benjamin Watts MD [address] [place] [address] PCP - General 05/18/12
--- OUTSIDE RECORDS SUMMARY | 2025-04-13 08:44 | XMS_ITS | Encounter Summary ---
Author Organization [facility] Address [address] [place] [address] Care Team Providers Care Rubber Cutting Machine Tender Name Role Phone Benjamin Watts MD Primary Care Provider [phone] Encounter Details Date Type Department Care Team (Late st Contact Info) Description 04/12/2025 Telephone [facility] [address] [place] [id number] Vince Manjarrez DO [address] [place], [facility] Social History Tobacco Use Types Packs/Day Years [...] on file documented as of this encounter Miscellaneous Notes * Telephone Encounter - Anamika Maloney LPN - 04/12/2025 10:21 AM EDT Patient was called made aware of results and that we will treat her with an antibiotic and pharmacywas verified. Patient advised will be awaiting the lab results. PVU * Telephone Encounter - Anamika Maloney LPN - 04/12/2025 9:23 AM EDT Patient called the office with questions in regards to her Prolactin testing. Patient was advised would look into the hospital for this and she was advised she will need to have this drawn and that the cultures are back he will review and she will be made aware of results and these then will be attached to her mychart for review. PVU and Prolactin was sent to [facility] for her to have drawn, cultures for review. documented in this encounter Plan of Treatment Upcoming Encounters Date Type Department Care Team (Late st Contact Info) Description 04/28/2025 9:50 AM EDT Consult [facility] [address] [address] Vince Manjarrez DO [address] [place], [place] [address] documented as of this encounter Visit Diagnoses Diagnosis Nipple discharge Other sign and symptom in breast documented in this encounter Care Teams Rubber Cutting Machine Tender Relationship Specialty Start Date End Date Benjamin Watts MD [address] [place] [address] PCP - General Family Medicine 02/05/23 documented as of this encounter
--- OUTSIDE RECORDS SUMMARY | 2025-04-13 08:44 | XMS_ITS | Encounter Summary ---
Author Organization [facility] Address [address] [place] [address] Care Team Providers Care Jewelry Sales Representative Name Role Phone Benjamin Watts MD Primary Care Provider [phone] Encounter Details Date Type Department Care Team (Late Contact Info) Description 04/12/2025 Abstract [facility] [place] [address] Vince Manjarrez DO [address] [place], [place] [address] Social History Tobacco Use Types Packs/Day Years [...] AM EDT Consult [facility] [address] [place] [address] Vince Manjarrez DO [address] [place], [facility] documented as of this encounter Visit Diagnoses Not on filedocumented in this encounter Care Teams Jewelry Sales Representative Relationship Specialty Start Date End Date Watts, [place] J, MD [address] [place] [address] PCP - General Family Medicine 02/05/23 documented as of this encounter
--- OUTSIDE RECORDS SUMMARY | 2025-04-13 08:44 | XMS_ITS | Encounter Summary ---
Author Organization [facility] Address [address] [place] [address] Care Team Providers Care Human Resources Administrator Name Role Phone Benjamin Watts MD Primary Care Provider [phone] Encounter Details Date Type Department Care Team (Late st Contact Info) Description 02/23/2025 Orders Only [facility] [address] [address] Ambar Alonso LPN [address] [place] [address] Social History Tobacco Use Types Packs/Day Years [...] AM EDT Consult [facility] [address] [place] [place] [address] Vince Manjarrez DO [address] [place] [id number] documented as of this encounter Procedures Procedure Name Priority Date/Time Associated Diagnosis Comments PAP SMEAR Routine 02/15/2025 12:00 AM EDT documented in this encounter Results * Pap Smear (02/15/2025 12:00 AM EDT) Swab Cervical swab / Unknown [facility] CYTOLOGY ORDERABLES Final Re sult EXTERNAL LAB documented in this encounter Visit Diagnoses Not on filedocumented in this encounter Care Teams Human Resources Administrator Relationship Specialty Start Date End Date Benjamin Watts MD [address] [place] [address] PCP - General Family Medicine 02/05/23 documented as of this encounter
--- OUTSIDE RECORDS SUMMARY | 2025-04-13 08:44 | XMS_ITS | Encounter Summary ---
Author Organization [facility] Address [address], [address] [place] [address] Care Team Providers Care Front End Specialist Name Role Phone Benjamin Watts MD Primary Care Provider [phone] Encounter Details Date Type Department Care Team (Late st Contact Info) Description 04/03/2016 PAT Telephone [facility] Pre-Admit Testing [address] [place] [address] Marie Sinclair RN Social History Tobacco Use Types Packs/Day Years Used Date Smoking Tobacco: Never Alcohol Use Standard Drinks/Week Comments No 0 (1 standard drink = 0.6 oz pur e alcohol) Comments No Sex and Gender Information Value Date Recorded Sex Assigned at Not on file Legal Sex Female 3:34 PM EST Gender Identity Not on file Sexual Orientation Not on file documented as of this encounter Plan of Treatment Not on file documented as of this encounter Visit Diagnoses Not on filedocumented in this encounter Care Teams Front End Specialist Relationship Specialty Start Date End Date Benjamin Watts MD [address] [place] [address] PCP - General 05/18/12 documented as of this encounter
--- OUTSIDE RECORDS SUMMARY | 2025-04-13 08:44 | XMS_ITS | Encounter Summary ---
Author Organization [facility] Address [address], [address] [place] [address] Care Team Providers Care Workforce Development Vice President Name Role Phone Benjamin Watts MD Primary Care Provider [phone] Encounter Details Date Type Department Care Team (Late st Contact Info) Description 04/06/2016 Post-op Telephone [facility] Surgery [address] [place] [address] Akiko Buenrostro MA Social History Tobacco Use Types Packs/Day Years [...] on filedocumented in this encounter Care Teams Workforce Development Vice President Relationship Specialty Start Date End Date Benjamin Watts MD [address] [place] [address] PCP - General 05/18/12 documented as of this encounter
--- OUTSIDE RECORDS SUMMARY | 2025-04-13 08:45 | XMS_ITS | Clinical Summary ---
Author Organization [facility] Address [id number] [address] [place] [address] Care Team Providers Care Software Tester Name Role Phone Marko Freeman MD Primary Care Provider [phone] Allergies Active Allergy Reactions Criticality Noted Date Comments Azithromycin Vomiting 05/14/2021 Medications vit calc,iron,folic ( VITAMIN ORAL) Take by mouth. 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) Infuse 8,500 Units into a venous catheter daily as needed (Bleeding) for up to 1 dose. Take PRN as directed for bleeding prophylaxis or bleeding episodes 2 each 1 Active Additional Information Patient not taking.Reported on 06/07/2021 omeprazole (PriLOSEC) 40 mg capsule 1 Active acetaminophen (TylenoL) 325 mg tablet Take 2 tablets (650 mg total) by mouth every 6 (six) hours as needed for pain. 30 tablet 1 Active ibuprofen (ADVIL,MOTRIN) 600 mg tablet Take 1 tablet (600 mg total) by mouth every 6 (six) hours as needed for pain. 30 tablet 1 Active docusate sodium (COLACE) 100 mg capsule Take 1 capsule (100 mg total) by mouth 2 (two) times a day. 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 Delivery plan in Hematology note on 05/14/21 Alprolix at delivery Requesting IOL for coordination of care Family history of hemophilia B Overview (03/30/2021): Son with hemophilia b Resolved Problems Problem Noted Date Diagnosed Date Resolved Date Coagulation defect, maternal, antepartum 04/03/2021 06/24/2021 Supervision of other high ri , antepartum 06/24/2021 Overview (06/21/2021): [x] 1hr GTT 133 > needs 3hr [ ] COVID vaccine [ ] Flu vaccine [x] 28 wk Rhogam MFM U/S 06/08: cephalic, fundal placenta, ESTEFANIA 12.3; Est FW 2794 gm (66%ile); AC 67%ile Immunizations Immunization Administration Dates Next Due Rho (D) Immune Globulin 06/25/2021,05/07/2021 Family History Medical History Relation Name Comments Hypertension Father Kidney failure Father Diabetes Maternal Grandmother Nora's disease Paternal Grandfather Relation Name Status Comments Father Maternal Grandmother Paternal Grandfather (Age 32) Social History Tobacco Use Types Packs/Day Years Used Date Smoking Tobacco: Former Cigarettes Q uit: 2019 Smokeless Tobacco: Never Alcohol Use Standard Drinks/Week Comments Not Currently 0 (1 standard drink = 0.6 oz pur e alcohol) PHQ-2 Answer Date Recorded Total Score 0 05/14/2021 Childcare Answer Date Recorded Childcare Unknown 01/25/2019 Employment Answer Date Recorded Employment Unknown 01/25/2019 Purpose - Life Answer Date Recorded Purpose and direction in life Unknown Comments No Sex and Gender Information Value Date Recorded Sex Assigned at Not on file Legal Sex Female 2:10 PM EDT Gender Identity Not on file Sexual Orientation Not on file Occupation Industry Job Start Date Job End Date Unemployed Not on file Not on file Not on file Last Filed Vital Signs Vital Sign Reading Time Taken Comments Blood Pressure 131/79 06/26/2021 2:00 PM EST Pulse 97 06/26/2021 2:00 PM EST Temperature 36.7 C (98.1 F) 06/26/2021 2:00 PM EST Respiratory Rate 18 06/26/2021 2:00 PM EST Oxygen Saturation 99% 06/22/2021 12:14 PM EDT Inhaled Oxygen Concentration - - Weight 64.6 kg (142 lb 6.7 oz) 06/25/2021 6:00 A M EST Height 165.1 cm (5' 5 ) 06/22/2021 12:20 PM EDT Body Mass Index 23.7 06/22/2021 12:20 PM EDT Plan of Treatment Health Maintenance Due Date Last Done Comments Depression Screening 2010 Tobacco Screening 2010 Adult BMI Screening 2016 Pap Smear 2019 Influenza Vaccine 04/18/2025 07/15/2005 DTaP,Tdap and Td Vaccines (8 - Td or Tdap) 03/22/2029 03/22/2019, 02/28/2011, 02/02/2004, Additional history exists Medical Devices Not on file Insurance [facility] MEDICAID Member Subscriber Plan / Payer (Ef fective 2022-Present) Name:Edel Collins Member ID:Not on file Relation to Subscriber:Self Name:Edel Collins Subscriber ID:Not on file Payer ID:Not on file Group ID:Not on file Type:Not on file Address: [facility] [id number] [place] [id number] Advance Directives * Full Code (Latest Code Status on File) Date Activated Date Inactivated Comments 06/25/2021 7:20 AM 06/26/2021 5:59 PM * Full Code Date Activated Date Inactivated Comments 06/07/2021 5:03 PM 06/09/2021 2:29 PM Care Teams Software Tester Relationship Specialty Start Date End Date Marko Freeman MD [address], [place] [address] PCP - General Obstetrics & Gynecology 04/11/21
--- OUTSIDE RECORDS SUMMARY | 2025-04-13 08:45 | XMS_ITS | Encounter Summary ---
Author Organization [facility] tem Address [id number] [address] [place] [address] Care Team Providers Care Commercial Solar Sales Consultant Name Role Phone Marko Freeman MD Primary Care Provider [phone] Encounter Details Date Type Department Care Team (Late st Contact Info) Description 04/16/2021 Orders Only Maternal- Medicine at [facility] [address] [place] [id number] Yeni Deras, aquatics director history of hemophilia B Social History Tobacco Use Types Packs/Day Years [...] on file Sexual Orientation Not on file COVID-19 Exposure Response Date Recorded In the last month, have you been in contact with someone who was confirmed or suspected to have Coronavirus / COVID-19? No / Unsure 03/30/2021 2:02 PM EDT documented as of this encounter Plan of Treatment Not on file documented as of this encounter Procedures Procedure Name Priority Date/Time Associated Diagnosis Comments UNLISTED LAB TEST Routine 03/30/2021 Family history of hemophilia B documented in this encounter Results * Unlisted Lab Test(Not for Covid-19 Testing), (03/30/2021) Unlisted lab test see attached report [facility] Comment:see attached report 03/30/2021 us Suresh Hdz MD LAB BLOOD ORDERABLES Final Res ult [facility] documented in this encounter Visit Diagnoses Diagnosis Family history of hemophilia B documented in this encounter Care Teams Commercial Solar Sales Consultant Relationship Specialty Start Date End Date Marko Freeman MD [address], [place] [address] PCP - General Obstetrics & Gynecology 04/11/21 documented as of this encounter
--- OUTSIDE RECORDS SUMMARY | 2025-04-13 08:45 | XMS_ITS | Encounter Summary ---
Author Organization [facility] tem Address [id number]-[id number] [address] [place] [address] Care Team Providers Care Able Bodied Seaman Name Role Phone Marko Freeman MD Primary Care Provider [phone] Encounter Details Date Type Department Care Team (Late st Contact Info) Description 03/30/2021 Orders Only Maternal- Medicine at [facility] [address] [facility] [place] [phone] Suresh Hdz MD [address] [place] [address] Family history of hemophilia B (Primary Dx) Social History Tobacco Use Types Packs/Day Years [...] on file documented as of this encounter Results * Unlisted Lab Test(Not for Covid-19 Testing), (03/30/2021) Unlisted lab test see attached report SUNQUEST Comment:see attached report 03/30/2021 us Suresh Hdz MD LAB BLOOD ORDERABLES Final Res ult SUNQUEST documented in this encounter Visit Diagnoses Diagnosis Family history of hemophilia B- Primary documented in this encounter Care Teams Able Bodied Seaman Relationship Specialty Start Date End Date Marko Freeman MD [address], [place] [address] PCP - General Obstetrics & Gynecology 04/11/21 documented as of this encounter
--- OUTSIDE RECORDS SUMMARY | 2025-04-13 08:45 | XMS_ITS | Encounter Summary ---
Author Organization [facility] tem Address [facility]-[id number] [address] [place] [address] Care Team Providers Care Rubber Belt Splicer Name Role Phone Marko Freeman MD Primary Care Provider [phone] Reason for Visit * Reason Onset Date Comments OB referral for FIX pt 05/08/2021 Encounter Details Date Type Department Care Team (Late st Contact Info) Description 05/08/2021 [facility] [address] [facility] [address] [place] [id number] Cintia Nunez LISW OB referral for FIX pt Social History Tobacco Use Types Packs/Day Years [...] have Coronavirus / COVID-19? No / Unsure 05/11/2021 2:00 PM EDT documented as of this encounter Miscellaneous Notes * Telephone Encounter - RUSLAN Ng - 05/08/2021 3:29 PM EDT PC from Muriel Gatica, Nurse Coordinator at [facility]. Pt.was seen virtually by (their [facility] cell cleaner) last wk. spoke with Dr. Venkata Freeman, JUDIT at [facility] regarding this pt.The 2 physicians are recommending that pt.deliver at [facility] if she can be followed by a cell cleaner here.Muriel was clarifying that [facility] sees adult pts.as well as pediatrics. Sand System Operator advised Muriel that [facility] does see adult pts. Sand System Operator provided the name of adult cell cleaner, Dr.Drew Kimble or Disha Lanza CNP. Sand System Operator also provided the phone number for pt.to call [facility] for an appt ([phone]). Sand System Operator advised Muriel that pt.could be scheduled within a wk or so since she is already 30 wks . It appears she has an appt.at [facility] on 05/11 at 1400. Unfortunately, [facility] does not have a provider available on Fridays but could schedule pt.on another day. Muriel will reach out to pt.to advise her of above information. RUSLAN Joya * Telephone Encounter - Robbie Kimble MD - 05/08/2021 3:29 PM EDT Thanks! * Telephone Encounter - RUSLAN Ng - 05/08/2021 3:29 PM EDT PC to pt.to discuss her interest in delivering at [facility].Pt.stated she is ok with delivering at [facility] since it is closer to her home. Pt.has an appt.with [facility] tomorrow. Pt.was advised that she will also need to see high-risk OB and that M may facilitate that process for her. Pt.scheduled to see Disha Lanza CNP at [facility] on Friday, 05/14 at 2:30. Pt.would like to see OB on that date too if possible. Sand System Operator will route to [facility] for f/u. Pt.seemed receptive to following at [facility] for her OB care and C management of her . RUSLAN Joya documented in this encounter Plan of Treatment Not on file documented as of this encounter Visit Diagnoses Not on filedocumented in this encounter Care Teams Rubber Belt Splicer Relationship Specialty Start Date End Date Marko Freeman MD [facility] [address], [place] [address] PCP - General Obstetrics & Gynecology 04/11/21 documented as of this encounter
--- OUTSIDE RECORDS SUMMARY | 2025-04-13 08:45 | XMS_ITS | Encounter Summary ---
Author Organization [facility] Address [address] [place] [address] Care Team Providers Care Heating Plant Superintendent Name Role Phone Benjamin Watts MD Primary Care Provider [phone] Encounter Details Date Type Department Care Team (Late Contact Info) Description 01/25/2023 Abstract [facility] [address] [place] [address] Catalina Rainey PA [address] [facility] [place], [facility] Social History Tobacco Use Types Packs/Day Years [...] Encounters Date Type Department Care Team (Late Contact Info) Description 04/28/2025 9:50 AM EDT Consult [facility] [address] [place] [address] [place] [address] Vince Manjarrez DO [address] [facility] [facility] [facility] [address] [place], [place] [address] documented as of this encounter Visit Diagnoses Not on filedocumented in this encounter Care Teams Heating Plant Superintendent Relationship Specialty Start Date End Date Benjamin Watts MD [address] [place] [address] PCP - General Family Medicine 02/05/23 documented as of this encounter
--- OUTSIDE RECORDS SUMMARY | 2025-04-13 08:45 | XMS_ITS | Encounter Summary ---
Author Organization [facility] tem Address [place]-[id number] [address] [place] [address] Care Team Providers Care Meat Hanger Name Role Phone Marko Freeman MD Primary Care Provider [phone] Encounter Details Date Type Department Care Team (Late st Contact Info) Description 05/14/2021 Abstract [facility] [address] [place] [address] Eugenia Nolasco LPN Social History Tobacco Use Types Packs/Day Years [...] file Not on file Not on file COVID-19 Exposure Response Date Recorded In the last month, have you been in contact with someone who was confirmed or suspected to have Coronavirus / COVID-19? Unable to assess 05/16/2021 1:12 PM EDT documented as of this encounter Plan of Treatment Not on file documented as of this encounter Procedures Procedure Name Priority Date/Time Associated Diagnosis Comments AFP SINGLE MARKER SCRN, MATERNAL, SERUM Routine 02/20/2021 QUAD SCREEN (2ND TRIMESTER) MATERNAL, SERUM Routine 01/24/2021 FREE CELL DNA (NON-[facility] SEND OUT) Routine 12/27/2020 GLU 1H POST 50G LOAD Routine 12/27/2020 CBC (NO DIFF) Routine 12/27/2020 documented in this encounter Results * AFP Single Marker Scrn, Maternal, Serum (02/20/2021) Pathologist [facility] [place] Ms Alpha-Fetoprot ein declined MANUALLY TRANSCRIBED RESULTS us Not In System Ref Prov LAB BLOOD ORDERABLES Joi l Result MANUALLY TRANSCRIBED RESULTS * Quad Screen (2nd Trimester) Maternal, Serum (01/24/2021) Pathologist [facility] [place] Quad Screen declined MANUALLY TRANSCRIBED RESULTS us Not In System Ref Prov LAB BLOOD ORDERABLES Joi l Result MANUALLY TRANSCRIBED RESULTS * Free Cell DNA (12/27/2020) Pathologist [facility] [place] Free Cell Dna negative MANUALLY TRANSCRIBED RESULTS us Not In System Ref Prov LAB BLOOD ORDERABLES Joi l Result MANUALLY TRANSCRIBED RESULTS * CBC without diff (12/27/2020) Pathologist [facility] [place] Rbc Mcv (Fl) By Automated Count 88 MANUALLY TRANSCRIBED RESULTS us Not In System Ref Prov LAB BLOOD ORDERABLES Joi l Result MANUALLY TRANSCRIBED RESULTS * Glucose 1h post 50g load (12/27/2020) Pathologist [facility] [place] Glucose, 1 hr PP 50GM dose 91 MANUALLY TRANSCRIBED RESULTS us Not In System Ref Prov LAB BLOOD ORDERABLES Joi l Result MANUALLY TRANSCRIBED RESULTS documented in this encounter Visit Diagnoses Not on filedocumented in this encounter Additional Health Concerns Assessment Noted Time PHQ-9 Depression Total Score: 0 05/14/20 21 2:00 PM EDT documented as of this encounter Care Teams Meat Hanger Relationship Specialty Start Date End Date Marko Freeman MD [address], [place] [address] PCP - General Obstetrics & Gynecology 04/11/21 documented as of this encounter
--- OUTSIDE RECORDS SUMMARY | 2025-04-13 08:45 | XMS_ITS | Encounter Summary ---
Author Organization [facility] tem Address [facility]-[id number] [address] [place] [address] Care Team Providers Care Superintendent Maintenance Name Role Phone Marko Freeman MD Primary Care Provider [phone] Encounter Details Date Type Department Care Team (Late st Contact Info) Description 05/30/2021 Orders Only [facility] - Labor [address] [place] [address] Catalina Toro RN Social History Tobacco Use Types Packs/Day [...] Time PHQ-9 Depression Total Score: 0 05/14/20 2:00 PM EDT documented as of this encounter Care Teams Superintendent Maintenance Relationship Specialty Start Date End Date Marko Freeman MD [facility] [address] [place] [address] PCP - General Obstetrics & Gynecology 04/11/21 documented as of this encounter
--- OUTSIDE RECORDS SUMMARY | 2025-04-13 08:45 | XMS_ITS | Encounter Summary ---
Author Organization [facility] tem Address [facility]-[id number] [address] [place] [address] Care Team Providers Care Supervisor Operations Name Role Phone Marko Freeman MD Primary Care Provider [phone] Encounter Details Date Type Department Care Team (Late st Contact Info) Description 05/30/2021 Documentation [facility] - Labor [address] [place] [address] Denise Arce RN Social History Tobacco Use Types Packs/Day [...] PM EDT documented as of this encounter Nursing Notes * Denise Arce RN - 05/30/2021 1:41 PM EDT Phone call [facility] 05/30/21 discussed with management team. documented in this encounter Plan of Treatment Not on file documented as of this encounter Visit Diagnoses Not on filedocumented in this encounter Additional Health Concerns Assessment Noted Time PHQ-9 Depression Total Score: 0 05/14/20 2:00 PM EDT documented as of this encounter Care Teams Supervisor Operations Relationship Specialty Start Date End Date Marko Freeman MD [address] [place], [place] [address], [place] [address] PCP - General Obstetrics & Gynecology 04/11/21 documented as of this encounter
--- OUTSIDE RECORDS SUMMARY | 2025-04-13 08:45 | XMS_ITS | Encounter Summary ---
Author Organization [facility] Address [address] [facility] [place] [address] Care Team Providers Care Php Magento Developer Name Role Phone Benjamin Watts MD Primary Care Provider Encounter Details Date Type Department Care Team (Late st Contact Info) Description 05/14/2019 [facility] [address] [place] [address] Lety Rash[place] [address] Social History Tobacco Use Types Packs/Day Years Used Date Smoking Tobacco: Former Cigarettes Smokeless Tobacco: Never Comments:stopped at begining of Alcohol Use Standard Drinks/Week Comments No 0 (1 standard drink = 0.6 oz pur e alcohol) PHQ-2 Answer Date Recorded PHQ-2 Score 0 11/18/2018 Comments No Sex and Gender Information Value Date Recorded Sex Assigned at Not on file Legal Sex Female 3:34 PM EST Gender Identity Not on file Sexual Orientation Not on file documented as of this encounter Progress Notes * Lety Rashid IBCLC - 05/14/2019 2:01 PM EDT Discharge Phone Call Log Patient Name: Edel Bebeto Collins OB Care Provider: No admitting provider for patient encounter. Most Recent Discharge Date: 05/08/19 Disposition of baby: (home) Call made 05/14/2019 2:01 PM [x] Spoke with patient. Problem/question identified: Infant had to be admitted to [facility] for complications following circumcision. [x] Understood discharge instructions and had appropriate follow up care. [x] Hospital experience satisfactory. She was satisfied with her care by the OB department. Did notwish to speak to refrigeration manager regarding infant's outpatient circumcision [] Could improve experience: [] Comments: documented in this encounter Plan of Treatment Not on file documented as of this encounter Visit Diagnoses Not on filedocumented in this encounter Care Teams Php Magento Developer Relationship Specialty Start Date End Date Benjamin Watts MD [address] [place] [address] PCP - General 05/18/12 documented as of this encounter
--- OUTSIDE RECORDS SUMMARY | 2025-04-13 08:45 | XMS_ITS | Encounter Summary ---
Author Organization [employer] [facility] tem Address [facility]-[id number] [address] [place] [address] Care Team Providers Care Electrocardiograph Repairer Name Role Phone Marko Freeman MD Primary Care Provider Encounter Details Date Type Department Care Team (Late st Contact Info) Description 06/25/2021 Social Work [facility] [address] [place] [phone] Cintia Nunez LISW Social History Tobacco Use Types Packs/Day Years [...] have Coronavirus / COVID-19? No / Unsure 06/22/2021 12:24 PM EDT documented as of this encounter Plan of Treatment Not on file documented as of this encounter Visit Diagnoses Not on filedocumented in this encounter Additional Health Concerns Assessment Noted Time PHQ-9 Depression Total Score: 0 05/14/20 21 2:00 PM EDT documented as of this encounter Care Teams Electrocardiograph Repairer Relationship Specialty Start Date End Date Marko Freeman MD [address], [place] [address] PCP - General Obstetrics & Gynecology 04/11/21 documented as of this encounter
== END 2025-04-13 08:42 | disposition home or self-care (01) ==
LOC: LAB 08:41
PROVIDERS: Visit Provider Nurse Practitioner Family
DX: N64.3 Galactorrhea not associated with childbirth (principal)
CPT/HCPCS: 84146

== ENCOUNTER 2025-05-10 08:30 | Outpatient (RCR) | payer OTHER, SELFPAY ==
--- OUTSIDE RECORDS SUMMARY | 2025-04-19 08:36 | XMS_ITS | Encounter Summary ---
Author Organization [facility] tem Address [facility] [id number] [address] [place] [address] Care Team Providers Care Software Development Leader Name Role Phone Marko Freeman MD Primary Care Provider [phone] Encounter Details Date Type Department Care Team (Late st Contact Info) Description 02/28/2021 Telephone Maternal- Medicine at [facility] [address] [place] [address] Adela Brownlee CNA Social History Tobacco Use Types Packs/Day Years [...] have Coronavirus / COVID-19? No / Unsure 03/01/2021 1:27 PM EDT documented as of this encounter Plan of Treatment Not on file documented as of this encounter Visit Diagnoses Not on filedocumented in this encounter Care Teams Software Development Leader Relationship Specialty Start Date End Date Marko Freeman MD [address], [place] [address] PCP - General Obstetrics & Gynecology 04/11/21 documented as of this encounter
--- OUTSIDE RECORDS SUMMARY | 2025-04-19 08:37 | XMS_ITS | Encounter Summary ---
Author Organization [facility] Address [address] [place] [address] Care Team Providers Care Sourcing Associate Name Role Phone Benjamin Watts MD Primary Care Provider [phone] Encounter Details Date Type Department Care Team (Late Contact Info) Description 01/25/2023 Abstract [facility] [address] [facility] [place] [address] Catalina Rainey PA [address] [place], [facility]11 Social History Tobacco Use Types Packs/Day Years [...] 04/28/2025 9:50 AM EDT Consult [facility] [address] [place] [address] [place] [address] Vince Manjarrez DO [address] [place], [place] [address] documented as of this encounter Visit Diagnoses Not on filedocumented in this encounter Care Teams Sourcing Associate Relationship Specialty Start Date End Date Benjamin Watts MD [address] [place] [address] PCP - General Family Medicine 02/05/23 documented as of this encounter
--- OUTSIDE RECORDS SUMMARY | 2025-04-19 08:37 | XMS_ITS | Encounter Summary ---
Author Organization [facility] Address [address] [place] [address] Care Team Providers Care Pheresis Nurse Name Role Phone Benjamin Watts MD Primary Care Provider [phone] Encounter Details Date Type Department Care Team (Late st Contact Info) Description 04/06/2016 Post-op Telephone [facility] [address] [place] [address] Akiko Buenrostro MA Social History Tobacco Use [...] on filedocumented in this encounter Care Teams Pheresis Nurse Relationship Specialty Start Date End Date Benjamin Watts MD [address] [place] [address] PCP - General 05/18/12 documented as of this encounter
--- OUTSIDE RECORDS SUMMARY | 2025-04-19 08:37 | XMS_ITS | Encounter Summary ---
Author Organization [facility] Address [address] [place] [address] Care Team Providers Care Java Sql Developer Name Role Phone Benjamin Watts MD Primary Care Provider [phone] Encounter Details Date Type Department Care Team (Late st Contact Info) Description 02/23/2025 Orders Only [facility] [address] [facility] [place] [place] [address] Ambar Alonso LPN [address] [place] [address] Social History Tobacco Use Types Packs/Day Years [...] AM EDT Consult [facility] [address] [place] [address] Vince Manjarrez DO [address] [place] [id number] documented as of this encounter Procedures Procedure Name Priority Date/Time Associated Diagnosis Comments PAP SMEAR Routine 02/15/2025 12:00 AM EDT documented in this encounter Results * Pap Smear (02/15/2025 12:00 AM EDT) Swab Cervical swab / Unknown Catalina NIETO LAB CYTOLOGY ORDERABLES Final Re sult EXTERNAL LAB documented in this encounter Visit Diagnoses Not on filedocumented in this encounter Care Teams Java Sql Developer Relationship Specialty Start Date End Date Benjamin Watts MD [address] [place] [address] PCP - General Family Medicine 02/05/23 documented as of this encounter
--- OUTSIDE RECORDS SUMMARY | 2025-04-19 08:37 | XMS_ITS | Encounter Summary ---
Author Organization [facility] tem Address [facility]-[id number] [address] [facility] [place] [address] Care Team Providers Care Music Artist Name Role Phone Marko Freeman MD Primary Care Provider [phone] Encounter Details Date Type Department Care Team (Late st Contact Info) Description 06/25/2021 Social Work [facility] [address] [place] [address] Cintia Nunez LISW Social History Tobacco Use [...] documented as of this encounter Care Teams Music Artist Relationship Specialty Start Date End Date Marko Freeman MD [address] [place] [address] PCP - General Obstetrics & Gynecology 04/11/21 documented as of this encounter
--- OUTSIDE RECORDS SUMMARY | 2025-04-19 08:37 | XMS_ITS | Encounter Summary ---
Author Organization [facility] Address [address] [place] [address] Care Team Providers Care Certified Cytotechnologist Name Role Phone Benjamin Watts MD Primary Care Provider Encounter Details Date Type Department Care Team (Late st Contact Info) Description 04/13/2025 Clinisync Result Encounter [facility] External Department Unsolicited Felicity Hernández, DANITZA [address] [place] [address] Social History Tobacco Use Types Packs/Day Years [...] 04/28/2025 9:50 AM EDT Consult [facility] OBGYLisa [address] [place] [address] Vince Manjarrez DO [address] [place], [place] [id number] documented as of this encounter Procedures Procedure Name Priority Date/Time Associated Diagnosis Comments [facility] PROLACTIN Routine 04/13/2025 8:56 AM EDT documented in this encounter Results * [facility] PROLACTIN (04/13/2025 8:56 AM EDT) PROLACTIN 14.7 4.8 - 33.4 ng/mL [facility] Comment: Performed at: - [facility] [id number] Order Clerk: Nacho Graves PhD, Phone: [phone] 04/13/2025 8:56 AM EDT 04/13/2025 8:56 AM EDT Narrative [facility] - 04/14/2025 8:09 AM EDT us Felicity Hernández NP [facility] Final [facility] documented in this encounter Visit Diagnoses Not on filedocumented in this encounter Care Teams Certified Cytotechnologist Relationship Specialty Start Date End Date Benjamin Watts MD [address] [place] [address] PCP - General Family Medicine 02/05/23 documented as of this encounter
--- OUTSIDE RECORDS SUMMARY | 2025-04-19 08:37 | XMS_ITS | Encounter Summary ---
Author Organization [facility] tem Address [facility]-[id number] [address] [place] [address] Care Team Providers Care Efficiency Miner Blasting Name Role Phone Marko Freeman MD Primary Care Provider [phone] Encounter Details Date Type Department Care Team (Late st Contact Info) Description 04/16/2021 Orders Only Maternal- Medicine at [facility] [address] [place] [address] Yeni Deras, dairy quality assurance officer history of hemophilia B Social History Tobacco [...] B documented in this encounter Care Teams Efficiency Miner Blasting Relationship Specialty Start Date End Date Marko Freeman MD [address] [place] [address] PCP - General Obstetrics & Gynecology 04/11/21 documented as of this encounter
--- OUTSIDE RECORDS SUMMARY | 2025-04-19 08:37 | XMS_ITS | Clinical Summary ---
Author Organization [employer] tem Address [facility]-[id number] [address] [place] [address] Care Team Providers Care Primary Care Sales Representative Name Role Phone Marko Freeman MD Primary Care Provider Allergies Active Allergy Reactions Criticality Noted Date Comments Azithromycin Vomiting 05/14/2021 Medications vit calc,iron,folic ( VITAMIN ORAL) Take by mouth. 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 ([facility]) Infuse 8,500 Units into a venous catheter [...] exists Medical Devices Not on file Insurance [facility] MEDICAID Member Subscriber Plan / Payer (Ef fective 2022-Present) Name:Edel Collins Member ID:Not on file Relation to Subscriber:Self Name:Edel Collins Subscriber ID:Not on file Payer ID:Not on file Group ID:Not on file Type:Not on file Address: [facility] [id number] [place] [id number] Advance Directives * Full Code (Latest Code Status on File) Date Activated Date Inactivated Comments 06/25/2021 7:20 AM 06/26/2021 5:59 PM * Full Code Date Activated Date Inactivated Comments 06/07/2021 5:03 PM 06/09/2021 2:29 PM Care Teams Primary Care Sales Representative Relationship Specialty Start Date End Date Marko Freeman MD [address] [place] [address] PCP - General Obstetrics & Gynecology 04/11/21
--- OUTSIDE RECORDS SUMMARY | 2025-04-19 08:37 | XMS_ITS | Encounter Summary ---
Author Organization [facility] Address [address] [place] [address] Care Team Providers Care Vessel Liner Name Role Phone Benjamin Watts MD Primary Care Provider [phone] Encounter Details Date Type Department Care Team (Late st Contact Info) Description 11/24/2023 Clinisync Result Encounter NOMS External Department Unsolicited Rajni Manjarrez DO [address] [place], [place] [id number] Social History Tobacco Use Types Packs/Day Years [...] Consult [facility] [address] [place] [phone] Rajni Manjarrez DO [address] [place], [place] [id number] documented as of this encounter Procedures Procedure Name Priority Date/Time Associated Diagnosis Comments US PELVIS W/ TRANSVAGINAL 11/24/2023 5:36 AM EDT documented in this encounter Results * US PELVIS W/ TRANSVAGINAL (11/24/2023 5:36 AM EDT) Anatomical Region Laterality Modality Other 11/24/2023 5:36 AM EDT Narrative 11/24/2023 5:39 [place] [address] Ultrasound Report Signed Patient: EDEL TEJEDA MR#: [id number] : 2000 Acct:[id number] Age/Sex: 23 / F ADM Date: 11/22/23 Loc: US Attending Dr: Rajni Manjarrez D.O. Ordering Physician: Rajni Manjarrez D.O. Date of Service: 11/22/23 Procedure(s): US pelvis w/ transvaginal Accession Number(s): [id number] cc: Rajni Manjarrez D.O.; Physician,Non-Staff M.[place]inda [place] [id number] Patient Name: EDEL TEJEDA MRN: [id number] date: 2000 Sex: F Assigned Patient Location: US Current Patient Location: Accession/Order Number: [id number] Exam Date: 11/22/2023 11:03 Report Date: 11/24/2023 [...] M.D. Signed By: 11/24/23 0539 DD/ TD/TT: Research Environmental Scientist: Procedure Note Radiology, Radiologist, MD - 11/24/2023 [place] [address] Ultrasound Report Signed Patient: EDEL TEJEDA MMR#: [id number] : 2000Acct:[id number] Age/Sex: 23 / FADM Date: 11/22/23 Loc: US Attending Dr: Rajni Manjarrez D.O. Ordering Physician: Rajni Manjarrez D.O. Date of Service: 11/22/23 Procedure(s): US pelvis w/ transvaginal Accession Number(s): [id number] cc: Rajni Manjarrez D.O.; Physician,Non-Staff Za[place] [id number] Patient Name: EDEL TEJEDA MRN: [id number] date: 2000 Sex: F Assigned Patient Location: US Current Patient Location: Accession/Order Number: [id number] Exam Date: 11/22/2023 11:03 Report Date: 11/24/2023 [...] M.D. Signed By:11/24/23 0539 DD/ 0536 TD/TT: Research Environmental Scientist: us Rajni Josseline DO [facility] Final Result documented in this encounter Visit Diagnoses Not on filedocumented in this encounter Care Teams Vessel Liner Relationship Specialty Start Date End Date Benjamin Watts MD [address] [place] [id number] PCP - General Family Medicine 02/05/23 documented as of this encounter
--- OUTSIDE RECORDS SUMMARY | 2025-04-19 08:37 | XMS_ITS | Encounter Summary ---
Author Organization [facility] tem Address [id number] [address] [place] [address] Care Team Providers Care Lab Asst Name Role Phone Marko Freeman MD Primary Care Provider [phone] Encounter Details Date Type Department Care Team (Late st Contact Info) Description 05/30/2021 Orders Only [facility] - Labor [address] [place] [address] Catalina Toro RN Social History [...] documented as of this encounter Care Teams Lab Asst Relationship Specialty Start Date End Date Marko Freeman MD [facility] [address] [place] [address] PCP - General Obstetrics & Gynecology 04/11/21 documented as of this encounter
--- OUTSIDE RECORDS SUMMARY | 2025-04-19 08:37 | XMS_ITS | Encounter Summary ---
Author Organization [facility] Address [address] [place] [address] Care Team Providers Care Insurance Account Specialist Name Role Phone Benjamin Watts MD Primary Care Provider [phone] Encounter Details Date Type Department Care Team (Late st Contact Info) Description 04/12/2025 Telephone [facility] [address] [place] [phone] Vince Manjarrez DO [address] [place], [id number] Social History Tobacco Use Types Packs/Day Years [...] review. PVU and Prolactin was sent to [facility] for her to have drawn, cultures for review. documented in this encounter Plan of Treatment Upcoming Encounters Date Type Department Care Team (Late st Contact Info) Description 04/28/2025 9:50 AM EDT Consult [facility] [address] [facility] [place] [address] Vince Manjarrez DO [address] [place], [place] [id number] documented as of this encounter Visit Diagnoses Diagnosis Nipple discharge Other sign and symptom in breast documented in this encounter Care Teams Insurance Account Specialist Relationship Specialty Start Date End Date Benjamin Watts MD [address] [place] [address] PCP - General Family Medicine 02/05/23 documented as of this encounter
--- OUTSIDE RECORDS SUMMARY | 2025-04-19 08:37 | XMS_ITS | Encounter Summary ---
Author Organization [facility] Address [address], [address] [place] [address] Care Team Providers Care Shelving Supervisor Name Role Phone Benjamin Watts MD Primary Care Provider [phone] Encounter Details Date Type Department Care Team (Late st Contact Info) Description 05/14/2019 [facility] [address] [place] [address] Lety Rashid IBCLC OB Unit at [place] [id number] Social History Tobacco Use Types Packs/Day Years [...] identified: Infant had to be admitted to [facility] for complications following circumcision. [x] Understood discharge instructions and had appropriate follow up care. [x] Hospital experience satisfactory. She was satisfied with her care by the OB department. Did notwish to speak to manager financial reporting regarding 's outpatient circumcision [] Could improve experience: [] Comments: documented in this encounter Plan of Treatment Not on file documented as of this encounter Visit Diagnoses Not on filedocumented in this encounter Care Teams Shelving Supervisor Relationship Specialty Start Date End Date Benjamin Watts MD [address] [place] [address] PCP - General 05/18/12 documented as of this encounter
--- OUTSIDE RECORDS SUMMARY | 2025-04-19 08:37 | XMS_ITS | Encounter Summary ---
Author Organization [facility] tem Address [facility][id number] [address] [place] [address] Care Team Providers Care Commodity Analyst Name Role Phone Marko Freeman MD Primary Care Provider [phone] Encounter Details Date Type Department Care Team (Late st Contact Info) Description 05/30/2021 Documentation [facility] - Labor [address] [place] [address] Denise Arce RN Social History [...] EDT [facility] 05/30/21 discussed with management team. documented in this encounter Plan of Treatment Not on file documented as of this encounter Visit Diagnoses Not on filedocumented in this encounter Additional Health Concerns Assessment Noted Time PHQ-9 Depression Total Score: 0 05/14/20 2:00 PM EDT documented as of this encounter Care Teams Commodity Analyst Relationship Specialty Start Date End Date Marko Freeman MD [address] [place], [place] [address] [place] [address] PCP - General Obstetrics & Gynecology 04/11/21 documented as of this encounter
--- OUTSIDE RECORDS SUMMARY | 2025-04-19 08:37 | XMS_ITS | Encounter Summary ---
Author Organization [facility] tem Address [facility][id number] [address] [place] [address] Care Team Providers Care Distribution System Operator Name Role Phone Marko Freeman MD Primary Care Provider Encounter Details Date Type Department Care Team (Late st Contact Info) Description 05/14/2021 Abstract [facility] [address] [place] [address] Eugenia Nolasco LPN Social History Tobacco Use [...] documented as of this encounter Care Teams Distribution System Operator Relationship Specialty Start Date End Date Marko Freeman MD [address] [place] [address] PCP - General Obstetrics & Gynecology 04/11/21 documented as of this encounter
--- OUTSIDE RECORDS SUMMARY | 2025-04-19 08:37 | XMS_ITS | Encounter Summary ---
Author Organization [facility] tem Address [id number] [address] [place] [address] Care Team Providers Care Tint Layer Name Role Phone Marko Freeman MD Primary Care Provider [phone] Reason for Visit * Reason Onset Date Comments OB referral for FIX pt 05/08/2021 Encounter Details Date Type Department Care Team (Late st Contact Info) Description 05/08/2021 [facility]phone [facility] [address] [facility] [address] [place] [phone] Cintia Nunez LISW OB referral for FIX [...] PC from Muriel Gatica, Nurse Coordinator at [facility]. Pt.was seen virtually by (their [facility] swing type lathe operator) last wk. spoke with Dr. Venkata Freeman, JUDIT at [facility] regarding this pt.The 2 physicians are recommending that pt.deliver at TT if she can be followed by a swing type lathe operator here.Muriel was clarifying that [facility] sees adult pts.as well as pediatrics. [employer] Cutter Hand advised Muriel that [facility] does see adult pts. [employer] Cutter Hand provided the name of adult swing type lathe operator, Dr.Drew Kimble or Disha Lanza CNP. [employer] Cutter Hand also provided the phone number for pt.to call [facility] for an appt ([phone]). [employer] Cutter Hand advised Muriel that pt.could be scheduled within a wk or so since she is already 30 wks . It appears she has an appt.at [facility] on 05/11 at 1400. Unfortunately, [facility] does not have a provider available on [...] closer to her home. Pt.has an appt.with [facility] tomorrow. Pt.was advised that she will also need to see high-risk OB and that M may facilitate that process for her. Pt.scheduled to see Disha Lanza CNP at [facility] on Friday, 05/14 at 2:30. Pt.would like to see OB on that date too if possible. [employer] Cutter Hand will route to [facility] for f/u. Pt.seemed receptive to following at [facility] for her OB care and C management of her . RUSLAN Joya documented in this encounter Plan of Treatment Not on file documented as of this encounter Visit Diagnoses Not on filedocumented in this encounter Care Teams Tint Layer Relationship Specialty Start Date End Date Marko Freeman MD [facility] [address] [place] [address] PCP - General Obstetrics & Gynecology 04/11/21 documented as of this encounter
--- OUTSIDE RECORDS SUMMARY | 2025-04-19 08:37 | XMS_ITS | Encounter Summary ---
Author Organization [facility] Address [address], [address] [place] [address] Care Team Providers Care Parboiler Name Role Phone Benjamin Watts MD Primary Care Provider [phone] Encounter Details Date Type Department Care Team (Late st Contact Info) Description 04/03/2016 PAT Telephone [facility] Pre-Admit Testing [address] [place] [address] Marie Sinclair RN Social History Tobacco Use [...] on filedocumented in this encounter Care Teams Parboiler Relationship Specialty Start Date End Date Benjamin Watts MD [address] [place] [address] PCP - General 05/18/12 documented as of this encounter
--- OUTSIDE RECORDS SUMMARY | 2025-04-19 08:37 | XMS_ITS | Clinical Summary ---
Author Organization [facility] Address [address] [place] [address] Care Team Providers Care Sales Record Clerk Name Role Phone Benjamin Watts MD Primary Care Provider [phone] Allergies Active Allergy Reactions Criticality Noted Date [...] days. 21 capsule 5 04/19/20 25 Active Encounters Date Type Department Care Team Description 04/13/2025 Clinisync Result Encounter NOMS External Department Unsolicited Felicity Hernández NP 04/12/2025 Abstract [facility] Mortensen [facility] [place] [address] Vince Manjarrez, DO 04/12/2025 Telephone [facility] [place] [address] Vince Manjarrez, DO 03/28/2025 3:50 PM EDT Office Visit [facility] [place] [address] Vince Manjarrez, DO Inappropriate milk production (Primary Dx); PCOS (polycystic ovarian syndrome); Anxiety and depression ; Nausea; Hemophilia (HCC) 03/28/2025 Bamboo flowsheet [facility] Mortensen [facility] [place] [address] Vince Manjarrez, DO 03/01/2025 11:00 AM EDT Ancillary Procedure [facility] Mortensen [facility] [place] [address] PCOS (polycystic ovarian syndrome); Pain of ovary; Pelvic pain in female; Dyspareunia in female; Menorrhagia with regular cycle 02/23/2025 Orders Only [facility] N[facility] Mortensen [facility] [place] [address] Ambar Alonso LPN 02/15/2025 11:00 AM EDT Office Visit [facility] [place] [address] Catalina Rainey PA PCOS (polycystic ovarian syndrome) (Primary Dx); Well woman exam with routine gynecological exam; Pain of ovary; Pelvic pain in female; Dyspareunia in female; Menorrhagia with regular cycle; Anxiety and depression ; Nausea 02/15/2025 Clinisync Result Encounter NOMS External Department Unsolicited Catalina Rainey PA 02/15/2025 Bamboo flowsheet [facility] [address] [place] [address] Catalina Rainey PA from Last 3 Months [...] AM EDT Consult N[facility] [address] [place] [address] Vince Manjarrez DO [address] [place] [address] Procedures Procedure Name Priority Date/Time Associated Diagnosis Comments [facility] PROLACTIN Routine 04/13/2025 8:56 AM EDT DHEA, UNCONJUGATED Routine 03/29/2025 8: 46 AM [...] EDT from Last 3 Months Results * [facility] PROLACTIN (04/13/2025 8:56 AM EDT) PROLACTIN 14.7 4.8 - 33.4 ng/mL [facility] Comment: Performed at: - [facility] [id number] Maintenance Specialist: Nacho Graves PhD, Phone: [phone] 04/13/2025 8:56 AM EDT 04/13/2025 8:56 AM EDT Narrative [facility] - 04/14/2025 8:09 AM EDT us Felicity Hernández CLASS C DRIVER [facility] Final Result Performing Organization Address [facility] de Phone Number [facility] * DHEA-sulfate (03/29/2025 8:46 AM EDT) Blood Venous blood specimen / Unknown Catalina NIETO LAB BLOOD ORDERABLES Final Resul t Performing Organization Address [facility] de Phone Number [facility] * DHEA (03/29/2025 8:46 AM EDT) Blood Venous blood specimen / Unknown us Catalina NIETO LAB BLOOD ORDERABLES Final Resul t Performing Organization Address [facility] de Phone Number [facility] * CBC and differential (03/29/2025 8:46 AM EDT) Blood Venous blood specimen / Unknown Catalina NIETO LAB BLOOD ORDERABLES Final Resul t Performing Organization Address [facility] de Phone Number [facility] * hCG, quantitative, (03/29/2025 8:46 AM EDT) Blood Venous blood specimen / Unknown Catalina NIETO LAB BLOOD ORDERABLES Final Resul t Performing Organization Address [facility] de Phone Number [facility] * TSH (03/29/2025 8:46 AM EDT) Blood Venous blood specimen / Unknown Catalina Rainey PA LAB BLOOD ORDERABLES Final Resul t Performing Organization Address [facility] Phone Number [facility] * T4, free (03/29/2025 8:46 AM EDT) Blood Venous blood specimen / Unknown Catalina Rainey PA LAB BLOOD ORDERABLES Final Resul t Performing Organization Address [facility] Phone Number [facility] * Hemoglobin A1c (03/29/2025 8:46 AM EDT) Blood Venous blood specimen / Unknown Catalina Rainey PA LAB BLOOD ORDERABLES Final Resul t Performing Organization Address [facility] Phone Number [facility] * Luteinizing hormone (03/29/2025 8:46 AM EDT) Blood Venous blood specimen / Unknown Catalina Rainey PA LAB BLOOD ORDERABLES Final Resul t Performing Organization Address [facility] Phone Number [facility] * Follicle stimulating hormone (03/29/2025 8:46 AM EDT) Blood Venous blood specimen / Unknown Catalina Rainey PA LAB BLOOD ORDERABLES Final Resul t Performing Organization Address [facility] de Phone Number [facility] * US pelvis [...] appears unremarkable. No fluid is seen within [id number]-[id number]. Bilateral ovarian follicles majority 3-5 mm, largest islocated within the right ovary 2.2 x 1.6 x 2.1 cm. IMPRESSION: 1. Ovarian follicles, right ovarian cyst. 2. Normal uterus. TRANSCRIBED BY: ELECTRONICALLY SIGNED BY: Hudson Dean MD Catalina NIETO Chery US PROCEDURES Final Result * [facility] PREG QUANT HCG (02/15/2025 12:34 PM EDT) HCG QUANTITATIVE <1 mIU/mL [facility] Comment: 5-50 0.2-1 WEEK 50-500 1-2 WEEKS 100-5,000 2-3 WEEKS 500-10,000 3-4 WEEKS 1,000-50,000 4-5 WEEKS 10,000-100,000 5-6 WEEKS 15,000-200,000 6-8 WEEKS 10,000-100,000 2-3 MONTHS 02/15/2025 12:3 4 PM EDT 02/15/2025 12:45 PM EDT Narrative [facility] - 02/15/2025 1:42 PM EDT Catalina KELLOGG Final Result [facility] * MLR HEMOGLOBIN A1C (02/15/2025 12:34 PM EDT) GLYCOHEMOGLOBIN A1C 5.2 4.5 - 6.2 % [facility] Comment: ADA RECOMMENDED LIMIT 4.0 - 6.0 ADA THERAPEUTIC TARGET < 7.0 ACTION SUGGESTED > 7.0 ESTIMATED AVERAGE GLUCOSE 103 mg/dL TB 02/15/2025 12:3 4 PM EDT 02/15/2025 12:45 PM EDT Narrative [facility] - 02/15/2025 3:48 PM EDT us Catalina KELLOGG Final Result Performing Organization Address [facility] Phone Number [facility] * ALL THYROXINE (T4) FREE (02/15/2025 12:34 PM EDT) FREE T4 0.98 0.76 - 1.46 ng/dL TB 02/15/2025 12:3 4 PM EDT 02/15/2025 12:45 PM EDT Narrative [facility]IN[facility] - 02/15/2025 3:11 PM EDT us Catalina KELLOGG Final Result Performing Organization Address [facility] Phone Number [facility] * ALL THYROID STIM HORMONE (02/15/2025 12:34 PM EDT) THYROID STIMULATING HORMONE 0.818 0.358 - 3.740 uIU/mL TB 02/15/2025 12:3 4 PM EDT 02/15/2025 12:45 PM EDT Narrative [facility]INIS[facility]NC - 02/15/2025 1:42 PM EDT us Catalina KELLOGG Final Result Performing Organization Address [facility] Phone Number [facility] * ALL LUTEINIZING HORMONE (02/15/2025 12:34 PM EDT) LUTEINIZING HORMONE(LH) 8.7 . mIU/mL [facility] Comment: Adult Female Range Follicular phase 2.4 - 12.6 Ovulation phase 14.0 - 95.6 Luteal phase 1.0 - 11.4 Postmenopausal 7.7 - 58.5 02/15/2025 12:3 4 PM EDT 02/15/2025 12:45 PM EDT Narrative CLINISYNC - 02/16/2025 4:07 AM EDT Catalina KELLOGG Final Result Performing Organization Address [facility] Co de Phone Number [facility] TB * ALL FOLLICLE STIMULATING HORMONE (02/15/2025 12:34 PM EDT) FSH 3.2 . mIU/mL [facility] Comment: Adult Female Range Follicular phase 3.5 - 12.5 Ovulation phase 4.7 - 21.5 Luteal phase 1.7 - 7.7 Postmenopausal 25.8 - 134.8 Performed at: [address] [id number] Maintenance Specialist: Nacho Graves PhD, Phone: [phone] 02/15/2025 12:3 4 PM EDT 02/15/2025 12:45 PM EDT Narrative CLINISYNC - 02/16/2025 4:07 AM EDT Catalina KELLOGG Final Result Performing Organization Address [facility] Co de Phone Number [facility] TB * ALL DHEA SULFATE (02/15/2025 12:34 PM EDT) DHEA-SULFATE 201.0 84.8 - 378.0 ug/dL [facility] 02/15/2025 12:3 4 PM EDT 02/15/2025 12:45 PM EDT Narrative CLINIS[facility] - 02/16/2025 4:07 AM EDT Catalina KELLOGG Final Result Performing Organization Address City/[facility] Co de Phone Number [facility] TB * ALL CBC WITH AUTO DIFF (02/15/2025 12:34 PM EDT) [facility] TB WBC 4.8 4.0 - 11.0 10 3/uL [...] CLINISYNC - 02/15/2025 12:58 PM EDT Catalina KELLOGG Final Result [facility] * IGP,APTIMA HPV,AGE GDLN (02/15/2025 11:12 AM EDT) GILL MCGEE ACOG TESTING Note . [facility] Comment: TESTS RESULT FLAG UNITS REF RANGE LAB Clinician Provided Cytology Information Source.............Cervix;Endocervix No. of containers..01 ThinPrep Vial Gill LEVI Marianne... FLAG LEGEND: L-Low Normal,H-High Normal,LL-Alert Low,HH-Alert High <-Panic Low,>-Panic High,A-Abnormal,AA-Critical Abnormal Performed at: 01 =G [facility] [address] [place] [address] Lori Suarez MD, IGP, RFX APTIMA HPV ASCU Note . [facility] Comment: TESTS RESULT FLAG UNITS REF RANGE LAB DIAGNOSIS: 02 NEGATIVE FOR INTRAEPITHELIAL LESION OR MALIGNANCY. FUNGAL ORGANISMS MORPHOLOGICALLY CONSISTENT WITH SIDNEY SPECIES ARE PRESENT. Specimen adequacy: 02 Satisfactory for evaluation. No endocervical component is identified. Performed by: 02 Daisy Lyons, Vacuum Conditioner Operator ([facility]) . 02 Note: Note 03 [...] <-Panic Low,>-Panic High,A-Abnormal,AA-Critical Abnormal Performed at: 02 [facility] [place] [address] Akil Patel MD, [address] [address] Lori Suarez MD, Performed at: =G - [facility] [address] [id number] Maintenance Specialist: Lori Suarez MD, Phone: [phone] Performed at: [facility] [address] [place], [place] [id number] Maintenance Specialist: Akil Patel MD, Phone: [phone] 02/15/2025 11:1 2 AM EDT 02/15/2025 8:40 PM EDT Narrative CLIN[facility] - 02/21/2025 4:08 PM EDT BRUSH-SPATULA CERVIX ENDOCERVIX us Catalina NIETO LAB BLOOD ORDERABLES Final Resul t [facility] * Pap Smear (02/15/2025 12:00 AM EDT) Swab Cervical swab / Unknown us Catalina NIETO LAB CYTOLOGY ORDERABLES Final Re sult EXTERNAL LAB from Last 3 Months Insurance [employer] Care Teams Sales Record Clerk Relationship Specialty Start Date End Date Benjamin Watts MD [address] [place] [phone] PCP - General Family Medicine 02/05/23
--- OUTSIDE RECORDS SUMMARY | 2025-04-19 08:37 | XMS_ITS | Encounter Summary ---
Author Organization [facility] tem Address [facility][id number] [address] [place] [address] Care Team Providers Care Denture Packer Name Role Phone Marko Freeman MD Primary Care Provider [phone] Encounter Details Date Type Department Care Team (Late st Contact Info) Description 02/23/2021 Orders Only Maternal- Medicine at [facility] [address] [place] [id number] External, Scanning Provider Social History Tobacco Use [...] more fetus (11/28/2020) Anatomical Region Laterality Modality OB-REGULATORY ASSISTANT Ultrasound Narrative 11/28/2020 See attached report us Scanning Provider External IMG US ORDERABLES Osito paulo Result - Final documented in this encounter Visit Diagnoses Not on filedocumented in this encounter Care Teams Denture Packer Relationship Specialty Start Date End Date Marko Freeman MD [address] [facility] [place] [address] PCP - General Obstetrics & Gynecology 04/11/21 documented as of this encounter
--- OUTSIDE RECORDS SUMMARY | 2025-04-19 08:37 | XMS_ITS | Encounter Summary ---
Author Organization [facility] tem Address [id number] [address] [place] [address] Care Team Providers Care Care Aid Name Role Phone Marko Freeman MD Primary Care Provider [phone] Encounter Details Date Type Department Care Team (Late st Contact Info) Description 03/30/2021 Orders Only Maternal- Medicine at [facility] [address] [facility] [place] [id number] Suresh Hdz MD [address] [place] [address] Family history of hemophilia B (Primary Dx) [...] Primary documented in this encounter Care Teams Care Aid Relationship Specialty Start Date End Date Marko Freeman MD [address], [place] [address] PCP - General Obstetrics & Gynecology 04/11/21 documented as of this encounter
--- OUTSIDE RECORDS SUMMARY | 2025-04-19 08:37 | XMS_ITS | Clinical Summary ---
Author Organization [facility] Address [address], [address] [place] [address] Care Team Providers Care Polytechnic Registrar Name Role Phone Benjamin Watts MD Primary Care Provider [phone] Allergies Active Allergy Reactions Criticality Noted Date [...] Procedure Name Priority Date/Time Associated Diagnosis Comments MACHINE CRATER CYTOLOGY Routine 05/03/2020 1:13 PM EDT C.TRACHOMATIS N.GONORRHOEAE DNA, THIN PREP Routine 05/03/2020 11:52 AM EDT Menorrhagia with irregular cycle HIV SCREEN Routine 09/08/2018 HEPATITIS C ANTIBODY Routine 08/27/2018 STD exposure from Last 3 Months or Most Recently Relevant to Health Maintenance Results * MACHINE CRATER Cytology (05/03/2020 1:13 PM EDT) Cytology Report INTERPRETATION Cervical material, (ThinPrep vial, Imaging-assisted review): Specimen Adequacy: Satisfactory for evaluation. - Endocervical/trans formation zone component present. - Scant cellularity; predominantly blood. - Specimen was reprocessed in an attempt to supplement squamous cell yield for adequacy. Descriptive Diagnosis: Negative for intraepithelial lesion or malignancy. Mechanical Field Engineer: WINSTON KIRKPATRICK(ASCP) Electronically Signed Out ey/05/16/2020 Source: 1: Cervical material, (ThinPrep vial, Imaging-assisted review) Clinical History Depo Provera Z12.4 Encounter for screening for malignant neoplasm of cervix LMP: 05/01/2020 GYNECOLOGIC CYTOLOGY REPORT Patient Name: EDEL TEJEDA [facility] Rec: [id number] Path Number: [id number] [facility] ANATOMIC PATHOLOGY [address] [place] [id number] [facility] 05/03/2020 1:13 PM EDT 05/04/2020 1:13 PM EDT Muriel Horton ANALYST BUSINESS ANALYSIS - CNM PATHOLOGY/CYTOLO GY ORDERABLES Final Result [facility] [address] [place] [address], [facility] [phone] [place] [address], [facility] [phone] * C.trachomatis N.gonorrhoeae DNA, Thin Prep (05/03/2020 11:52 AM EDT) Specimen Description .CERVIX 05/03/2020 11:52 AM EDT [facility] Chlamydia By Thin Prep NEGATIVE NEGATIVE 05/03/2020 11:52 AM EDT [facility] Comment: CHLAMYDIA TRACHOMATIS DNA not [...] Prep NEGATIVE NEGATIVE 05/03/2020 11:52 AM EDT [facility] [employer] Comment: NEISSERIA GONORRHOEAE DNA not detected by [...] EDT 05/03/2020 11:52 AM EDT Muriel Horton ANALYST BUSINESS ANALYSIS - CNM MICROBIOLOGY - G ENERAL ORDERABLES Final Result [facility] [address] [place] [address], [facility] [phone] [facility] [address] [place] [address], [facility] [phone] * HIV Screen (09/08/2018) HIV Ag/Ab non reactive BLOOD SPECIMEN / Unknown Historical Provider IMMUNOLOGY ORDERABLES Fin al Result * Hepatitis C Antibody (08/27/2018) Antibody Screen BLOOD SPECIMEN / Unknown 08/27/2018 Muriel Ivis Clifford ANALYST BUSINESS ANALYSIS - CNM IMMUNOLOGY ORDER HEIDY Final Result from Last 3 Months or Most Recently Relevant to Health Maintenance Insurance [facility] * Guarantor: GILDA TEJEDA Account Type Relation to Patient Date of Phone Billing Address Personal/Family Father 1971 [address] [place] [address] Advance Directives * Full Code (Latest Code Status on File) Date Activated Date Inactivated Comments 05/06/2019 11:21 PM 05/08/2019 4:02 PM * Full Code Date Activated Date Inactivated Comments 05/06/2019 8:15 AM 05/06/2019 11:21 PM * Full Code Date Activated Date Inactivated Comments 05/05/2019 10:26 PM 05/06/2019 8:15 AM Care Teams Polytechnic Registrar Relationship Specialty Start Date End Date Benjamin Watts MD [address] [place] [address] PCP - General 05/18/12
--- OUTSIDE RECORDS SUMMARY | 2025-04-19 08:37 | XMS_ITS | Encounter Summary ---
Author Organization [facility] Address [address] [place] [address] Care Team Providers Care Residential Support Worker Name Role Phone Benjamin Watts MD Primary Care Provider [phone] Encounter Details Date Type Department Care Team (Late Contact Info) Description 04/12/2025 Abstract [facility] [place] [address] Vince Manjarrez DO [address], [place] [address] Social History Tobacco Use Types Packs/Day Years [...] 04/28/2025 9:50 AM EDT Consult [facility] [address] [place] [address] Vince Manjarrez DO [address], [facility] documented as of this encounter Visit Diagnoses Not on filedocumented in this encounter Care Teams Residential Support Worker Relationship Specialty Start Date End Date Watts, Benjamin J, MD [address] [place] [address] PCP - General Family Medicine 02/05/23 documented as of this encounter
[2025-04-19 10:40] LABS: Hematocrit 39.9 % (36.0-48.0); Hemoglobin 12.9 g/dL (12.0-16.0); Immature Granulocytes Abs Auto 0.01 10^3/uL (0.00-0.03); Immature Granulocytes Pct Auto 0.3 % (0.0-0.5); Lymphocytes Absolute Auto 1.2 10^3/uL (1.2-3.8); Mean Corpuscular HGB Conc 32.3 g/dL (29.9-35.2); Mean Corpuscular Hemoglobin 29.0 pg (26.7-34.0); Mean Corpuscular Volume 89.7 fL (81.0-99.0); Platelet Count 238 10^3/uL (150-450); Red Blood Count 4.45 10^6/uL (4.20-5.40); White Blood Count 3.8 10^3/uL (4.0-11.0)
[2025-04-19 11:00] LABS: INR 1.08; Partial Thromboplastin Time 32.1 sec (22.3-36.2); Prothrombin Time 11.4 sec (9.0-11.6)
== END 2025-05-17 23:59 | disposition home or self-care (01) ==
LOC: HEMC 08:30
PROVIDERS: Visit Provider Internal Medicine Hematology & Oncology
DX: D67 Hereditary factor IX deficiency (principal); F17.290 Nicotine dependence, other tobacco product, uncomplicated
CPT/HCPCS: 36415; 85025; 85250; 85335; 85384; 85385; 85610; 85730; G0463